=== PATIENT | male | born 1950 | race Caucasian/White ===

== ENCOUNTER → 2017-10-09 07:05 | Outpatient (CLI) | payer MEDICARE, OTHER, SELFPAY ==
[2017-10-09 08:45] LABS: AST(SGOT) 10 U/L (15-37); Alanine Aminotransfer ALT/SGPT 26 U/L (16-61); Albumin, Serum 3.8 g/dL (3.2-5.0); Alkaline Phosphatase 85 U/L (45-117); Bilirubin, Direct 0.32 mg/dL (0.00-0.30); Cholesterol 125 mg/dL (200); Globulin 3.3 g/dL (2.2-4.2); High Density Lipoprotein 48 mg/dL; Protein, Total 7.1 g/dL (6.4-8.2); Triglycerides 78 mg/dL; Very Low Density Lipoprotein 16 mg/dL (5-40)
== END ==
PROVIDERS: Family Provider Family Medicine; PCP Family Medicine; Visit Provider Internal Medicine Cardiovascular Disease
DX: I35.0 Nonrheumatic aortic (valve) stenosis (principal); I25.10 Atherosclerotic heart disease of native coronary artery without angina pectoris; I10 Essential (primary) hypertension; E78.5 Hyperlipidemia, unspecified; Z95.5 Presence of coronary angioplasty implant and graft
CPT/HCPCS: 36415; 80061; 80076

== ENCOUNTER → 2017-10-13 10:33 | Outpatient (CLI) | payer MEDICARE, OTHER, SELFPAY ==
--- NOTE | 2017-10-13 10:36 | STE_ITS ---
Reason For Study: Aortic Stenosis, HTN, CAD Stress Results Protocol: Markos Protocol Maximum Predicted HR: 155 bpm Target HR: 132 bpm% Max imum Predicted HR: 100 % DurationHeart Rate Stage (mm:ss) (bpm) BP Baseline 67 122/84 Markos Protocol Stage I 3:00 10 6 164/78 Markos Protocol Stage II 3:00 13 3 190/80 Markos Protocol Stage III 3:00 15 5 194/82 Recovery 90 132/76 Stress Duration: 9:00 mm:ss Maximum Stress HR: 155 bpmM ETS: 10 Baseline Echocardiogram Findings The estimated ejection fraction is 65 %. Stress Echo Wall motion Data Resting WMIntermediate WMStress WM Resting Wall Motion Wall Motion Stress No regional wall motion No regional wall motion abnormalities noted. abnormalities noted. Interpretation Summary Normal adequate treadmill echocardiogram. Negative for ischemia by echocardiographic anterior. Patient did develop [address] segment changes at peak exercise which quickly resolved by 50 seconds into recovery. No associated anginal symptoms or wall motion abnromalities noted. No arrhythmias noted. Hypertensive blood pressure response to exercise. Patient had a baseline peak aortic valvular gradient of 24 mmHg, which increased to 65 mmHg at peak exercise. Average exercise capacity for age. Final LVEF is 75%. Test terminated due to dsypnea. MMode/2D Measurements & Calculations LVOT diam: 2.1 cm LVOT area: 3.5 cm2 Doppler Measurements & Calculations Ao V2 max: 248.2 cm/sec LV V1 max P.1 mmHg SV(LVOT): 112.7 ml Ao max P.7 mmHg LV V1 mean P.6 mmHg Ao V2 mean: 176.6 cm/sec LV V1 max: 151.1 cm/sec Ao mean P.8 mmHg LV V1 mean: 101.2 cm/sec Ao V2 VTI: 51.3 cm LV V1 VTI: 31.9 cm JESUS(I,D): 2.2 cm2 JESUS(V,D): 2.1 cm2 Ordering Physician: Vaibhav Mead Referring Physician: Vaibhav Mead MD Performed By: Nichelle Moscoso, ANDREW, RVT
== END ==
PROVIDERS: Family Provider Family Medicine; PCP Family Medicine; Visit Provider Internal Medicine Cardiovascular Disease
DX: I25.10 Atherosclerotic heart disease of native coronary artery without angina pectoris (principal); I35.0 Nonrheumatic aortic (valve) stenosis; I10 Essential (primary) hypertension; E78.5 Hyperlipidemia, unspecified; Z95.5 Presence of coronary angioplasty implant and graft
CPT/HCPCS: 93017; 93350

== ENCOUNTER → 2018-04-15 07:44 | Outpatient (CLI) | payer MEDICARE, OTHER, SELFPAY ==
[2018-04-15 10:34] LABS: AST(SGOT) 17 U/L (15-37); Alanine Aminotransfer ALT/SGPT 34 U/L (16-61); Albumin, Serum 4.1 g/dL (3.2-5.0); Alkaline Phosphatase 91 U/L (45-117); Bilirubin, Direct 0.17 mg/dL (0.00-0.30); Cholesterol 159 mg/dL (200); Globulin 3.3 g/dL (2.2-4.2); High Density Lipoprotein 44 mg/dL; Protein, Total 7.4 g/dL (6.4-8.2); Triglycerides 195 mg/dL; Very Low Density Lipoprotein 39 mg/dL (5-40)
== END ==
PROVIDERS: Family Provider Family Medicine; PCP Family Medicine; Visit Provider Physician Assistant Medical
DX: E78.5 Hyperlipidemia, unspecified (principal); Z79.899 Other long term (current) drug therapy
CPT/HCPCS: 36415; 80061; 80076

== ENCOUNTER → 2018-10-28 07:11 | Outpatient (CLI) | payer MEDICARE, OTHER, SELFPAY ==
[2018-10-07 10:20] VITALS: BMI 27.9
--- NOTE | 2018-10-28 07:38 | ECHOD_ITS ---
Reason For Study: Valve replacement eval Procedure This was a 2D Doppler, Color Flow transthoracic echocardiogram. Exam performed in department. Left Ventricle Normal size and thickness. The estimated ejection fraction is 65 %. Stage 1 diastolic dysfunction. No regional wall motion abnormalities noted. Right Ventricle Normal size and thickness. Normal systolic function. Atria Normal left atrium. Normal right atrium. Prominent eustachian valve. Normal atrial septum. Mitral Valve Mild diffuse mitral valve thickening. Moderate mitral annular calcification extending into the posterior leaflet. Trivial mitral valve insufficiency. Tricuspid Valve Normal tricuspid valve. Trivial tricuspid valve insufficiency. Right ventricular systolic pressure estimated to be 29 mmHg. Aortic Valve Trisinus/trileaflet aortic valve. Moderate focal aortic valve thickening. Moderate focal aortic valve calcification. Moderate restriction of the aortic valve. Mild aortic stenosis. Peak aortic valve gradient 19 mmHg. Mean aortic valve gradient 8 mmHg. Pulmonic Valve The pulmonic valve is not well visualized. Great Vessels Normal aortic root. Normal arch. Normal inferior vena cava. Inferior vena cava collapse with respiration. Pericardium/Pleural No pericardial effusion. MMode/2D Measurements & Calculations LVIDd: 3.9 cm IVSd: 1.1 cm LVOT diam: 2.0 cm LVIDs: 2.2 cm LVPWd: 1.3 cm LVOT area: 3.1 cm2 FS: 43.4 % Ao root diam: 3.5 cm LAV(MOD-bp): 64.8 ml LA A4 area: 21.0 cm2 LA dimension: 3.7 cm LAV(MOD-bp) Indexed: 34.0 ml/m2 LAV(MOD-sp2): 66.4 ml LAV(MOD-sp4): 61.9 ml RA A4 area: 18.4 cm2 Time Measurements MV dec time: 0.21 sec Doppler Measurements & Calculations MV E max dani: 108.5 cm/sec Lat Peak E' Dani: 9.6 cm/sec Med Peak E' Dani: 7.8 cm/sec MV A max dani: 80.0 cm/sec E/E' lat: 11.4 E/E' med: 13.9 MV E/A: 1.4 MV V2 max: 118.5 cm/sec MV P1/2t max dani: 119.4 cm/sec Ao V2 max: 218.3 cm/sec MV max P.6 mmHg MV P1/2t: 74.0 msec Ao max P.1 mmHg MV V2 mean: 55.5 cm/sec MV dec slope: 472.8 cm/sec2 Ao V2 mean: 127.0 cm/sec MV mean P.5 mmHg Ao mean P.9 mmHg MV V2 VTI: 47.3 cm MVA(P1/2t): 3.0 cm2 Ao V2 VTI: 49.4 cm MVA(VTI): 1.9 cm2 JESUS(I,D): 1.8 cm2 JESUS(V,D): 1.6 cm2 LV V1 max: 112.9 cm/sec SV(LVOT): 88.6 ml PA V2 max: 67.4 cm/sec LV V1 max P.1 mmHg LV V1 mean P.2 mmHg LV V1 mean: 66.7 cm/sec LV V1 VTI: 28.7 cm TR max dani: 246.0 cm/sec TR max P.2 mmHg Interpretation Summary The estimated ejection fraction is 65 %. Stage 1 diastolic dysfunction. Trivial mitral valve insufficiency. Trivial tricuspid valve insufficiency. Right ventricular systolic pressure estimated to be 29 mmHg. Mild aortic stenosis; may be underestimated. Compared to echo reprort dated 10/25/2015, no appreciable changes noted. Ordering Physician: Vaibhav Mead Referring Physician: Vaibhav Mead Performed By: Juan Dunn RCS
[2018-10-28 08:53] LABS: AST(SGOT) 20 U/L (15-37); Alanine Aminotransfer ALT/SGPT 34 U/L (16-61); Albumin, Serum 4.1 g/dL (3.2-5.0); Alkaline Phosphatase 103 U/L (45-117); Bilirubin, Direct 0.36 mg/dL (0.00-0.30); Cholesterol 161 mg/dL (200); Globulin 3.2 g/dL (2.2-4.2); High Density Lipoprotein 45 mg/dL; Protein, Total 7.3 g/dL (6.4-8.2); Triglycerides 106 mg/dL; Very Low Density Lipoprotein 21 mg/dL (5-40)
== END ==
PROVIDERS: Family Provider Family Medicine; PCP Family Medicine; Referring Provider Internal Medicine Cardiovascular Disease; Visit Provider Internal Medicine Cardiovascular Disease
DX: E78.5 Hyperlipidemia, unspecified (principal); I25.10 Atherosclerotic heart disease of native coronary artery without angina pectoris
CPT/HCPCS: 36415; 80061; 80076; 93306

== ENCOUNTER → 2018-11-04 09:20 | Outpatient (CLI) | payer MEDICARE, OTHER, SELFPAY ==
[2018-10-07 10:20] VITALS: BMI 27.9
--- NOTE | 2018-11-04 09:23 | STEWCON_ITS ---
Reason For Study: CAD/ASHD Stress Results Protocol: Markos Protocol Maximum Predicted HR: 154 bpm Target HR: 131 bpm % Maximum Predicted HR: 97 % DurationHeart Rate Stage (mm:ss) (bpm) BP Comment BASELINE 68 128/803 CC DEFINITY STAGE 1 3:00 114 170/84 STAGE 2 3:00 127 196/80SLIGHT SOB STAGE 3 3:00 150 186/822 CC DEFINITY RECOVERY 90 130/70NO CHEST PAIN Stress Duration: 9:00 mm:ss Maximum Stress HR: 150 bpm Baseline Echocardiogram Findings The estimated ejection fraction is 65 %. Stress Echo Wall motion Data Resting WM Intermediate WM Stress WM Resting Wall Motion Wall Motion Stress No regional wall motion No regional wall motion abnormalities noted. abnormalities noted. EKG Data Normal intervals are noted. The patient exercised according to the regular Markos protocol for a total duration of 9:00. The maximum heart rate attained was 155 beats per minute. This was 100% of maximum predicted heart rate. The patient exercised into stage 4 of the Markos protocol. At peak exercise, upsloping ST changes only were noted, which did not meet the criteria for ischemia. No arrhythmias noted. No clinical angina was noted. Interpretation Summary The estimated ejection fraction is 65 %. Normal, adequate, treadmill echocardiogram. Get it for ischemia by EKG and echocardiographic criteria. No anginal symptoms noted. No arrhythmias noted. Hypertensive blood pressure response to exercise. Average exercise capacity for age. Decreased sensitivity due to poor echo windows requiring Definity enhancing. Test terminated due to attainment of target heart rate and dyspnea. No peak and mean gradient obtained of his aortic valve. Final LVEF is 75%. The study was technically difficult. Contrast injection was performed. Ordering Physician: Vaibhav Mead MD Referring Physician: Vaibhav Mead Performed By: Juan Dunn RCS
== END ==
PROVIDERS: Family Provider Family Medicine; PCP Family Medicine; Referring Provider Internal Medicine Cardiovascular Disease; Visit Provider Internal Medicine Cardiovascular Disease
DX: I25.10 Atherosclerotic heart disease of native coronary artery without angina pectoris (principal); I35.0 Nonrheumatic aortic (valve) stenosis; I10 Essential (primary) hypertension; E78.5 Hyperlipidemia, unspecified; Z95.5 Presence of coronary angioplasty implant and graft
CPT/HCPCS: 93017; 93350; Q9957; A4216; C8928

== ENCOUNTER → 2019-11-13 | Outpatient (CLI) | payer MEDICARE, OTHER, SELFPAY ==
[2019-05-04 13:27] VITALS: BMI 29.2
[2019-11-13 08:11] LABS: AST(SGOT) 20 U/L (15-37); Alanine Aminotransfer ALT/SGPT 37 U/L (16-61); Albumin, Serum 3.9 g/dL (3.2-5.0); Alkaline Phosphatase 98 U/L (45-117); Bilirubin, Direct 0.33 mg/dL (0.00-0.30); Cholesterol 176 mg/dL (200); Globulin 3.4 g/dL (2.2-4.2); High Density Lipoprotein 43 mg/dL; Protein, Total 7.3 g/dL (6.4-8.2); Triglycerides 152 mg/dL; Very Low Density Lipoprotein 30 mg/dL (5-40)
== END | disposition home or self-care (01) ==
LOC: LAB 06:27
PROVIDERS: PCP Family Medicine; Referring Provider Internal Medicine Cardiovascular Disease; Visit Provider Internal Medicine Cardiovascular Disease
DX: E78.00 Pure hypercholesterolemia, unspecified (principal)
CPT/HCPCS: 36415; 80061; 80076

== ENCOUNTER → 2020-06-18 | Outpatient (CLI) | payer MEDICARE, OTHER, SELFPAY ==
[2019-11-16 08:56] VITALS: BMI 28.7
[2020-06-18 10:12] LABS: AST(SGOT) 23 U/L (15-37); Alanine Aminotransfer ALT/SGPT 35 U/L (16-61); Albumin, Serum 4.1 g/dL (3.2-5.0); Alkaline Phosphatase 91 U/L (45-117); Cholesterol 171 mg/dL (200); Globulin 3.5 g/dL (2.2-4.2); High Density Lipoprotein 47 mg/dL; Protein, Total 7.6 g/dL (6.4-8.2); Triglycerides 154 mg/dL; Very Low Density Lipoprotein 31 mg/dL (5-40)
== END | disposition home or self-care (01) ==
PROVIDERS: PCP Family Medicine; Referring Provider Internal Medicine Cardiovascular Disease; Visit Provider Internal Medicine Cardiovascular Disease
DX: E78.5 Hyperlipidemia, unspecified (principal); E78.00 Pure hypercholesterolemia, unspecified
CPT/HCPCS: 36415; 80061; 80076

== ENCOUNTER 2020-11-07 15:47 | Outpatient (RCR) | payer MEDICARE, OTHER, SELFPAY ==
[2020-06-20 08:29] VITALS: BMI 27.5
[2020-11-07] MEDS: COVID-19 VACC, MRNA(PFIZER)/PF 30 MCG/0.3 ML SYRINGE IM (07:07)
[2020-11-28] MEDS: COVID-19 VACC, MRNA(PFIZER)/PF 30 MCG/0.3 ML SYRINGE IM (07:04)
== END 2020-11-07 23:59 ==
LOC: IMMUN 15:47
PROVIDERS: PCP Family Medicine; Visit Provider Family Medicine
DX: Z23 Encounter for immunization (principal)
CPT/HCPCS: 0001A; 0002A

== ENCOUNTER → 2020-12-13 06:56 | Outpatient (CLI) | payer MEDICARE, OTHER, SELFPAY ==
[2020-06-20 08:29] VITALS: BMI 27.5
[2020-12-13 07:40] LABS: AST(SGOT) 17 U/L (15-37); Alanine Aminotransfer ALT/SGPT 36 U/L (16-61); Albumin, Serum 3.9 g/dL (3.2-5.0); Alkaline Phosphatase 94 U/L (45-117); Bilirubin, Direct 0.26 mg/dL (0.00-0.30); Cholesterol 199 mg/dL (200); Globulin 3.4 g/dL (2.2-4.2); High Density Lipoprotein 44 mg/dL; Protein, Total 7.3 g/dL (6.4-8.2); Triglycerides 164 mg/dL; Very Low Density Lipoprotein 33 mg/dL (5-40)
== END ==
PROVIDERS: PCP Family Medicine; Referring Provider Nurse Practitioner Family; Visit Provider Nurse Practitioner Family
DX: E78.5 Hyperlipidemia, unspecified (principal); E78.00 Pure hypercholesterolemia, unspecified
CPT/HCPCS: 36415; 80061; 80076

== ENCOUNTER → 2021-01-08 05:56 | Outpatient (CLI) | payer MEDICARE, OTHER, SELFPAY ==
[2020-12-19 09:09] VITALS: BMI 29.2
--- NOTE | 2021-01-08 06:00 | ECHOD_ITS ---
Reason For Study: AV DISEASE Procedure This was a 2D Doppler, Color Flow transthoracic echocardiogram. The study was technically difficult. Due to body habitus. Contrast injection was performed. Exam performed in department. Left Ventricle Normal LV size. Left ventricular systolic function is normal. The estimated ejection fraction is 75 %. No regional wall motion abnormalities noted. Right Ventricle Normal RV size. Normal systolic function. Atria Normal left atrium. Normal right atrium. Mitral Valve There is mild to moderate mitral annular calcification. Tricuspid Valve Normal tricuspid valve. Aortic Valve Trisinus/trileaflet aortic valve. Mild focal aortic valve calcification. Peak aortic valve gradient 34 mmHg. Mean aortic valve gradient 19 mmHg. Mild aortic stenosis. Pulmonic Valve The pulmonic valve is not well visualized. Great Vessels Normal aortic root. The pulmonary artery is normal size. Normal inferior vena cava. Pericardium/Pleural No pericardial effusion. Medication Diluted definity 3.0ml given slow IV push to enhance endocardial definition. MMode/2D Measurements & Calculations LVIDd: 3.6 cm IVSd: 1.1 cm LVOT diam: 2.0 cm LVIDs: 2.5 cm LVPWd: 1.1 cm RVDd: 4.0 cm FS: 32.0 % LVOT area: 3.0 cm2 Ao root diam: 3.3 cm LAV(MOD-bp): 68.8 ml LVAd ap4: 36.0 cm2 LAV(MOD-bp) Indexed: 34.2 ml/m2 LVLd ap4: 9.1 cm LAV(MOD-sp2): 68.4 ml EDV(MOD-sp4): 112.6 ml LAV(MOD-sp4): 64.4 ml EDV(sp4-el): 120.8 ml LVAs ap4: 17.3 cm2 LVLs ap4: 7.4 cm ESV(MOD-sp4): 31.8 ml ESV(sp4-el): 34.0 ml EF(MOD-sp4): 71.7 % EF(sp4-el): 71.8 % SV(MOD-sp4): 80.7 ml SV(sp4-el): 86.8 ml LA A4 area: 20.3 cm2 LA dimension(2D): 3.8 cm RA A4 area: 14.3 cm2 Time Measurements MV dec time: 0.38 sec Doppler Measurements & Calculations MV E max dani: 99.5 cm/sec Lat Peak E' Dani: 8.0 cm/sec Med Peak E' Dani: 6.0 cm/sec MV A max dani: 135.1 cm/sec E/E' lat: 12.5 E/E' med: 16.5 MV E/A: 0.74 Ao V2 max: 292.3 cm/sec LV V1 max: 162.2 cm/sec SV(LVOT): 101.6 ml Ao max P.2 mmHg LV V1 max P.5 mmHg Ao V2 mean: 208.3 cm/sec LV V1 mean P.2 mmHg Ao mean P.0 mmHg LV V1 mean: 118.8 cm/sec Ao V2 VTI: 53.4 cm LV V1 VTI: 33.8 cm JESUS(I,D): 1.9 cm2 JESUS(V,D): 1.7 cm2 PA V2 max: 132.5 cm/sec ECHO/Echo Complete W/ Contrast Interpretation Summary Normal LV size. Left ventricular systolic function is normal. The estimated ejection fraction is 75 %. Mean aortic valve gradient 19 mmHg. Mild focal aortic valve calcification. Mild aortic stenosis. Contrast injection was performed. Ordering Physician: Eduardo Link Referring Physician: NO PCP Performed By: Melinda Matthews, ANDREW, RVT
--- NOTE | 2021-01-08 17:47 | STRESSREP ---
Stress Test Report Exercise myocardial perfusion stress test. 70-year-old man with a history of coronary artery disease status post angioplasty and stenting of the proximal LAD, distal right coronary artery, and circumflex artery. Stress protocol: Resting EKG demonstrates normal sinus rhythm with a rate of 73 bpm normal intervals are noted resting blood pressure is 128/74 mmHg. The patient exercised according to the regular Markos protocol for total duration of 7 minutes. Patient completed 1 minute into stage III of the Markos protocol. The maximum heart rate attained was 146 bpm which was 96% of maximum predicted heart rate the maximum workload was 8.5 metabolic equivalents. At rest there were no ST or T wave changes noted to suggest ischemia and at peak exercise there was approximately [address] depression noted in lead V4 and [address] depression noted in V5 and V6. There was also a [address] depression noted in leads II, III and aVF suggestive of ischemia. The patient had slight chest discomfort noted. The peak blood pressure was 172/68 mmHg. Myocardial perfusion protocol. 11.4 mCi of technetium 99m sestamibi was injected at rest. The patient exercised according to the regular Markos protocol for 7 minutes and at peak exercise 36.0 mCi of technetium 99m sestamibi was injected stress images were obtained stress and rest images were reconstructed and compared in the short axis vertical long and horizontal long axis. Gated images were also obtained. Perfusion SPECT analysis: Review of the stress images demonstrate normal uptake of tracer noted in all areas of the myocardium. The resting images similarly demonstrated normal uptake of tracer noted in all areas of the myocardium. No obvious reversibility is noted to suggest ischemia. Balanced ischemia cannot be completely excluded. Gated SPECT analysis: The gated ejection fraction is noted to be 79%. Conclusion: Exercise myocardial perfusion stress test with no nuclear images suggestive of ischemia. EKG changes suggestive of ischemia present. Mild chest discomfort noted
== END ==
PROVIDERS: Referring Provider Internal Medicine Cardiovascular Disease; Visit Provider Internal Medicine Cardiovascular Disease
DX: I25.10 Atherosclerotic heart disease of native coronary artery without angina pectoris (principal); I35.8 Other nonrheumatic aortic valve disorders; Z95.5 Presence of coronary angioplasty implant and graft
CPT/HCPCS: 78452; 93017; 93306; A9500; Q9957; A4216; C8929

== ENCOUNTER 2021-02-14 06:45 | Day surgery (SDC) | payer MEDICARE, OTHER, SELFPAY ==
[2020-12-19 09:09] VITALS: BMI 29.2
--- NOTE | 2021-02-06 10:01 | RAD_ITS ---
INDICATION: chest pain EXAMINATION/TECHNIQUE: X-RAY - XR Chest 2 Views COMPARISON: 09/28/2012. FINDINGS: The lungs are clear. Tortuous and calcified thoracic aorta. The heart is not enlarged. No pleural effusion or pneumothorax. Degenerative changes of the thoracic spine. RAD/Chest PA and Lateral IMPRESSION: No acute radiographic abnormalities. Electronically Signed: Deven Werner MD at 21:10 EDT Tel , Service support ,
[2021-02-06 11:56] LABS: Absolute Lymphocyte Count 2.15 X10^3/uL (0.83-4.51); Absolute Neutrophil Count 4.3 X10^3/uL (2.0-7.7); Basophil# 0.02 X10^3/uL; Basophil% 0.3 % (0-1); Eosinophil# 0.06 X10^3/uL; Eosinophils% 0.9 % (0-5); Hematocrit 42.6 % (40-54); Hemoglobin 13.7 g/dL (13.0-16.5); Lymphocyte # 2.15 X10^3/ul (0.83-4.51); Lymphocyte % 30.6 % (19-41); Mean Corp Hgb Conc 32.2 g/dL (32-36); Mean Corpuscular Hgb 31.6 pg (27.0-32.0); Mean Corpuscular Volume 98.2 fL (80-94); Mean Platelet Vol. 12.1 fl (6.2-12.0); Monocyte# 0.44 X10^3/uL; Monocyte% 6.3 % (0-10); NRBC Flagged by Analyzer 0 % (0-5); Neutrophil # 4.33 X10^3/uL (2.7-7.7); Neutrophil % 61.5 % (47-70); Platelet Count 218 K/mm3 (150-450); RBC Distribution Width SD 43.8 fl (35.1-43.9); Red Blood Count 4.34 M/mm3 (4.6-6.2)
[2021-02-06 12:56] LABS: Anion Gap 8 (5-15); BUN 20 mg/dL (7-18); BUN/Creat Ratio 18.7 RATIO (10-20); Chloride 103 mmol/L (98-107); Creatinine, Serum 1.07 mg/dL (0.70-1.30); EST Glomerular Filtration Rate 73 mL/min (>60); Est Glom Filt Rate - Afr Amer 88 mL/min (>60); Glucose 113 mg/dL (74-106); Potassium 3.7 mmol/L (3.5-5.1); Sodium Level 139 mmol/L (136-145)
[2021-02-12 09:47] VITALS: BMI 29.2
--- NOTE | 2021-02-14 08:09 | HP.PCM_ITS ---
History and Physical This is a 70-year-old white male who presents to the [facility] today for a heart catheterization. He has a history of coronary artery disease status post angioplasty and stenting of his proximal LAD with a bare metal stent in the as well as a drug-eluting stent placed in the distal RCA and his most recent angioplasty in the circumflex and ramus intermedius on 01/02/2011. He also has a history of hypertension and hyperlipidemia as well. Patient was seen in office on 12/19/2020 and noted chest tightness. He underwent an echocardiogram on 01/08/2021 that showed ejection fraction of 75% and no regional wall motion abnormalities. He is noted to have mild aortic valve stenosis. He underwent a stress test on 01/08/2021 that showed EKG changes suggestive of ischemia and mild chest discomfort. Thus, he presents today for heart catheterization to evaluate further on account of abnormal stress test. He did receive the Covid shot and he thinks that he developed some chest tightness after that it is not clear whether this is related to the Covid vaccine or not. It took him approximately 3 weeks to get over that. He says that he otherwise has been doing well. He has been tested for Covid after that and has been normal. His blood pressure has been mildly elevated. He has gone up on the walks after that and no significant abnormalities have been noted. He has had no dizziness or diaphoresis no near syncope or syncope. His physical exam demonstrates clear lung german regular rate and rhythm soft 1/6 systolic murmur noted no pedal edema. Intake Vital Signs: See EMR Intake Visit Reasons: 6 M FU (DJN transfer) Allergies No Known Allergies Allergy (Verified 12/19/20 09:09) Medications See EMR Ejection fraction %: 75% [facility] Medical History Atherosclerosis of coronary artery of [place] heart without angina pectoris (Chronic) Non-rheumatic aortic stenosis (Chronic) Essential hypertension (Chronic) Hyperlipidemia (Chronic) GERD (gastroesophageal reflux disease) (Chronic) Surgical History History of coronary artery stent placement (Chronic) Family History Father CAD (coronary artery disease) Social History (Updated 12/19/20 @ 11:[address] Eduardo Link MD) Smoking Status: Never smoker ROS Const Const: Negative for fatigue, weakness, headache(s), frequent falls, difficulty sleeping or excessive sweating Eyes Eyes: Negative for loss of peripheral vision, transient loss of vision, blurry vision, double vision or tunnel vision ENT ENT: Negative for headache(s), dizziness, Nosebleed/epistaxis or balance problems Cardio Chest Pain: Yes (C.P SOB 4 weeks ago after COVID vaccine, went to urgent clinic COVID -) Palpitations: No Edema: None Muscle aches with walking: None Resp Respiratory: Negative for SOB with activity, SOB at rest, SOB orthopnea\SOB lying down, Cough or paroxysmal nocturnal dyspnea GI GI: Negative nausea, vomiting, heartburn or black,tarry stools : Negative for hematuria Musc Musc: Negative for muscle aches/ myalgia, muscle weakness, joint pain or balance problems Skin Skin: Negative non-healing lesions, rash or unusual bruising Neuro Neuro: Negative for dizziness, lightheadedness, near syncope, syncope, o rthostatic symptoms, frequent falls, headache(s), weakness, blurry vision, double vision or lack of coordination Carloz Hematologic/Lymphatic: Negative for easy bleeding or easy bruising Endo Endo: Negative for fatigue, excessive sweating or increased thirst/drinking Psych Psych: Negative for anxiety or depression Allergy Allergy/Immunology: Negative for hives, Negative for rash Cardiology Exam Const Appearance: cooperative, healthy appearing, no acute distress, well developed and well groomed Nutritional Appearance: average body habitus and well nourished Orientation: alert, awake and oriented x3 Head Head: normal to inspection, normocephalic and atraumatic Ears: hearing grossly normal bilaterally and external ears normal Nose: external nose normal, nares normal, nasal mucous membranes and turbinates normal, septum normal, no nasal discharge Face and Sinus: face symmetric Mouth: oral mucosae normal, tongue normal, oropharynx normal and moist mucous membranes Teeth and gingiva: dentition normal Throat: posterior oropharynx normal, tonsils normal and uvula midline Eyes General: appearance normal, both eyes and all related structures Eyelids: eyelids normal Conjunctivae: conjunctivae normal Pupils: PERRL, normal by confrontation and accommodation normal EOM: EOM intact bilaterally Neck Neck: normal visual inspection, trachea midline and no JVD JVD: +5 Carotids: normal carotid upstroke and bounding pulses Chest Chest inspection: normal inspection of the chest, symmetric chest movement and normal respiratory effort Auscultation: Bilateral: Clear to Auscultation Cardio Palpation: normal PMI Rate: regular rate Rhythm: regular rhythm Heart sounds: S1 normal, S2 normal and normal, physiologic split S2; negative rub, gallop or murmur Murmur: Grade 1/6, soft and early systolic GI GI: normal to inspection, soft, no hepatosplenomegaly and bowel sounds present Neuro General: alert, awake, oriented x3, gait normal, moves all extremities and no focal sensory deficit Skin Skin: no rashes or lesions noted Extremities Pulses: Normal: Right Femoral Pulse, Left Femoral Pulse, Right Dorsalis Pedis Pulse, Left Dorsalis Pedis Pulse, Right Posterior Tibial Pulse, Left Posterior Tibial Pulse, Right Radial Pulse, Left Radial Pulse Lower Extremity Edema: None: Bilateral Musculoskel Musculoskeletal: No joint tenderness Psych Psychological: normal affect Assessment & Plan 1. History of coronary artery stent placement Z95.5 OXI-[id number]-Odf-Distal RPDA,BMS-High Lateral Cx 05/23/1990; POBA-LAD 05/11/1991; Directional atherectomy Prox LAD w/ angioplasty 12/14/1990; BZB-ZFO-Ckin-Mid LAD 09/2004; NZG-PBP-Zeqs-Ramus w/ 2.75 x 28 mm Promus and Mid Ramus w/ 2.75 x 8 mm Promus 01/02/2011 Plan He does have a history of coronary artery disease status post previous angioplasty and stenting. Given his symptoms and abnormal stress test, he will proceed with heart catheterization. Based on results, further recommendation be made. 2. Non-rheumatic aortic stenosis I35.0 Plan He does have mild aortic stenosis. His most recent echocardiogram continues to show mild aortic valve stenosis. We will continue to monitor this over time through history, exam, and repeat echocardiogram as needed. 3. Essential hypertension I10 Plan He does have a history of hypertension. He is on a beta-richard, amlodipine, and RICHARD inhibitor. After last office visit he was started on doxazosin 2 mg a day and he was asked to continue to monitor his blood pressures. 4. Hyperlipidemia, unspecified hyperlipidemia type E78.5 Plan He does have a history of hyperlipidemia on a high intensity statin. I would like us to continue him on the same. He had been on 80 mg of atorvastatin but he had had significant muscle weakness. His most recent lipid profile demonstrates a total cholesterol 199, LDL 122 HDL of 44. No other changes will be made. The surgeon/proceduralist and patient have discussed in detail the risk of exposure to and/or potential harm posed by the COVID-19 virus with having a surgery/procedure at this time versus the risk of? delaying the surgery/procedure. It is not possible to know either the risk of delaying the surgery or procedure or chance of getting an infection with perfect accuracy, but a joint decision was made between the patient and the surgeon/proceduralist ?to proceed at this time with the scheduled surgery/procedure as indicated on the consent form.
--- NOTE | 2021-02-14 08:29 | CL.D_ITS ---
Patient Name: YADIEL CHAVARRIA Study Date: 02/14/2021 Performing: Eduardo Link MD Ht: 68.11 inches 173 cm : 1950 Wt: 191.8 lbs 87 kg Age: 70 Gender: male BSA: 2.01 PROCEDURE(S) PERFORMED [id number]/COR/LV CLINICAL PROFILE AND INDICATIONS Indications: Suspected CAD Heart Failure: None Stress/Imaging Date: 01/15/21 CAD Presentations: Symptom unlikely to be ischemic. CONCLUSIONS Single vessel CAD with significant LCX disease with patent stents in the LAD,ramus and RCA. RECOMMENDATIONS Medical therapy DESCRIPTION OF PROCEDURE The patient arrived to the procedure lab. The risks and benefits of the procedure as well as a full d escription of our services here and current unavailability of surgical backup were fully explained to the patient and/or their significant other prior to the catheterization. The Timeout was completed, verifying the correct patient and procedure. The patient's procedural site was prepped and draped in the usual fashion. Local anesthetic was given subcutaneously to right radial region with Lidocaine 2% . Using a modified Seldinger technique, arterial access was obtained via the right radial artery, a 6 Fr sheath was inserted. Right Coronary Artery selective angiography was then performed in multiple v iews using a 5 Fr. 4.0 [place] catheter. Left Coronary Artery selective angiography was performed in mu ltiple views using a 5 Fr. 4.0 [place] catheter. Left Ventriculography was performed in [place] projection using a 5 Fr. Pigtail catheter. LV to AO pullback pressures were then recorded.The arterial sheath was pulled and a TR Band was applied for hemostasis CORONARY ANGIOGRAPHY DOMINANCE: Right Dominant LEFT HEART ASSESSMENT Left Ventricular Ejection Fraction: by LV Gram 70 % Normal LV wall motion Normal Left Ventricular systolic function LEFT MAIN: Non-obstructive LEFT ANTERIOR DESCENDING ARTERY: MID LAD: Instent restenosis 20 % CIRCUMFLEX ARTERY: PROX CIRC: Diffusely diseased up to 80 % RAMUS: Previously placed stent is patent RIGHT CORONARY ARTERY: Mild luminal irregularities less than 30% DISTAL RCA: Previously placed stent is patent VALVE FINDINGS: Aortic Valve Calcification - mild COMPLICATIONS No Complications PROCEDURE MEDICATIONS Fentanyl 50 mcg IV Versed 1 mg IV Oxygen: 2 L/min via nasal cannula Heparin 3000 unit(s) IV 02/14/2021 08:00:45 SUMMARY OF HEMODYNAMIC DATA Time AIR REST ECG 07:03:25 AO 109/60 (81) SA 08:01:50 LV 121/7, 17 08:08:11 LV 122/9, 17 08:08:17 LV 117/10, 19 08:08:53 LVp 118/10, 18 08:08:57 AOp 115/57 (81) 08:09:02 Signed By Eduardo Link MD On 02/14/2021 08:28:43 Eduardo Link MD
== END 2021-02-14 09:50 | disposition home or self-care (01) ==
LOC: CLSP 06:45
PROVIDERS: Referring Provider Internal Medicine Cardiovascular Disease; Visit Provider Internal Medicine Cardiovascular Disease
DX: I25.10 Atherosclerotic heart disease of native coronary artery without angina pectoris (principal); I35.0 Nonrheumatic aortic (valve) stenosis; E78.5 Hyperlipidemia, unspecified; I10 Essential (primary) hypertension; K21.9 Gastro-esophageal reflux disease without esophagitis; Z95.5 Presence of coronary angioplasty implant and graft
CPT/HCPCS: 36415; 71046; 80048; 85025; 93458; 99152; 99153; J7040; Q9967; C1769; C1894

== ENCOUNTER → 2021-08-23 08:01 | Outpatient (CLI) | payer MEDICARE, OTHER, SELFPAY ==
[2021-08-23 08:44] LABS: AST(SGOT) 17 U/L (15-37); Alanine Aminotransfer ALT/SGPT 33 U/L (16-61); Albumin, Serum 3.9 g/dL (3.2-5.0); Alkaline Phosphatase 90 U/L (45-117); Bilirubin, Direct 0.22 mg/dL (0.00-0.30); Cholesterol 146 mg/dL (200); Globulin 3.3 g/dL (2.2-4.2); High Density Lipoprotein 43 mg/dL; Protein, Total 7.2 g/dL (6.4-8.2); Triglycerides 171 mg/dL; Very Low Density Lipoprotein 34 mg/dL (5-40)
== END ==
PROVIDERS: Visit Provider Nurse Practitioner Family
DX: E78.5 Hyperlipidemia, unspecified (principal)
CPT/HCPCS: 36415; 80061; 80076

== ENCOUNTER 2021-09-10 07:58 | Outpatient (CLI) | payer MEDICARE, OTHER, SELFPAY ==
--- NOTE | 2021-09-10 08:30 | MRI_ITS ---
STUDY: MRI BRAIN WITH AND WITHOUT CONTRAST (ATTENTION INTERNAL AUDITORY CANALS - I.A.C.''s) REASON FOR EXAM: Male, 71 years old. RIGHT HEARING LOSS TECHNIQUE: Standardized multiplanar fat and water weighted pulse sequences were obtained. 18CC IV DOTAREM was administered for the contrast portion of the examination. COMPARISON: None. FINDINGS: Normal bilateral temporal bones. Normal bilateral internal auditory canals. There is no demonstrated intracanalicular or cisternal vestibular schwannoma (acoustic neuroma). There is no enhancement of the bilateral VIIth or VIIIth cranial nerves. Normal bilateral cochlea, vestibules and semicircular canals. Normal size of the ventricles and extra-axial spaces for the patient''s age. Normal white matter tracts of the supratentorial brain. Normal bilateral basal ganglia. Normal thalami. There is no enhancing intra-axial or extra-axial abnormality. There is no extra-axial fluid accumulation. Normal sella turcica, pituitary gland, infundibular stalk, optic chiasm and hypothalamus. Normal tectal plate and pineal gland. Normal midbrain, emile and medulla. Normal cerebellum. MRI/Brain W/WO Contrast IMPRESSION: There is no demonstrated vestibular schwannoma (acoustic neuroma). Electronically Signed: Bere Galicia MD at 16:00 EST Tel , Service support ,
[2021-09-10 08:41] LABS: EGFR FINGERSTICK > 60.0000 mL/min (>60)
== END 2021-09-10 23:59 | disposition short-term general hospital (02) ==
LOC: MRI 08:00
PROVIDERS: Referring Provider Otolaryngology; Visit Provider Otolaryngology
DX: H91.21 Sudden idiopathic hearing loss, right ear (principal); H93.11 Tinnitus, right ear
CPT/HCPCS: 70553; A9575

== ENCOUNTER → 2022-04-17 | Outpatient (CLI) | payer MEDICARE, OTHER, SELFPAY ==
[2022-04-17 07:29] LABS: AST(SGOT) 20 U/L (15-37); Alanine Aminotransfer ALT/SGPT 37 U/L (16-61); Albumin, Serum 3.9 g/dL (3.2-5.0); Alkaline Phosphatase 93 U/L (45-117); Cholesterol 156 mg/dL (200); Globulin 3.4 g/dL (2.2-4.2); High Density Lipoprotein 40 mg/dL; Protein, Total 7.3 g/dL (6.4-8.2); Triglycerides 172 mg/dL; Very Low Density Lipoprotein 34 mg/dL (5-40)
== END | disposition home or self-care (01) ==
LOC: LAB 06:38
PROVIDERS: Referring Provider Nurse Practitioner Family; Visit Provider Nurse Practitioner Family
DX: E78.5 Hyperlipidemia, unspecified (principal)
CPT/HCPCS: 36415; 80061; 80076

== ENCOUNTER → 2022-04-22 | Outpatient (CLI) | payer MEDICARE, OTHER, SELFPAY ==
[2022-04-22 12:46] LABS: AST(SGOT) 16 U/L (15-37); Alanine Aminotransfer ALT/SGPT 33 U/L (16-61); Albumin, Serum 3.7 g/dL (3.2-5.0); Alkaline Phosphatase 85 U/L (45-117); Cholesterol 146 mg/dL (200); Globulin 3.3 g/dL (2.2-4.2); High Density Lipoprotein 40 mg/dL; Triglycerides 214 mg/dL; Very Low Density Lipoprotein 43 mg/dL (5-40)
== END | disposition home or self-care (01) ==
LOC: LAB 11:48
PROVIDERS: Referring Provider Nurse Practitioner Family; Visit Provider Nurse Practitioner Family
DX: E78.5 Hyperlipidemia, unspecified (principal)
CPT/HCPCS: 36415; 80061; 80076

== ENCOUNTER → 2022-10-13 | Outpatient (CLI) | payer MEDICARE, OTHER, SELFPAY ==
[2022-10-13 09:04] LABS: Anion Gap 6 (5-15); BUN 20 mg/dL (7-18); BUN/Creat Ratio 32.3 RATIO (10-20); Calcium,Total 9.3 mg/dL (8.5-10.1); Chloride 106 mmol/L (98-107); Creatinine, Serum 0.62 mg/dL (0.70-1.30); EST Glomerular Filtration Rate 137 mL/min (>60); Est Glom Filt Rate - Afr Amer 165 mL/min (>60); Glucose 114 mg/dL (74-106); Potassium 3.9 mmol/L (3.5-5.1); Sodium Level 142 mmol/L (136-145)
[2022-10-13 09:39] LABS: AST(SGOT) 17 U/L (15-37); Alanine Aminotransfer ALT/SGPT 33 U/L (16-61); Alkaline Phosphatase 88 U/L (45-117); Bilirubin, Direct 0.21 mg/dL (0.00-0.30); Cholesterol 147 mg/dL (200); Globulin 3.1 g/dL (2.2-4.2); High Density Lipoprotein 45 mg/dL; Protein, Total 7.1 g/dL (6.4-8.2); Triglycerides 145 mg/dL; Very Low Density Lipoprotein 29 mg/dL (5-40)
== END | disposition home or self-care (01) ==
LOC: LAB 07:59
PROVIDERS: Internal Medicine Cardiovascular Disease; Referring Provider Nurse Practitioner Family; Visit Provider Nurse Practitioner Family
DX: Z95.5 Presence of coronary angioplasty implant and graft (principal); E78.5 Hyperlipidemia, unspecified
CPT/HCPCS: 36415; 80048; 80061; 80076

== ENCOUNTER → 2022-10-26 | Outpatient (CLI) | payer MEDICARE, OTHER, SELFPAY ==
--- NOTE | 2022-10-26 17:26 | STRESSREP_ITS ---
Stress Test Report Exercise myocardial perfusion stress test. 72-year-old man with a history of coronary artery disease Stress protocol: Resting EKG demonstrates normal sinus rhythm with a rate of 73 bpm resting blood pressure is 126/80 mmHg. The patient exercised according to the regular Markos protocol for a total duration of 4 minutes and 45 seconds attaining a maximum heart rate of 134 bpm which was 89% of maximum predicted heart rate; the maximum workload was 7 metabolic equivalents. At rest there were no ST or T wave changes noted to suggest ischemia and at peak exercise upsloping ST changes only were noted which did not meet the criteria for ischemia. No clinical angina was noted the test was terminated due to the target heart rate being achi eved/fatigue. The peak blood pressure was 162/80 mmHg. Rate-pressure product was 21,700. Myocardial perfusion protocol. 15.8 mCi of technetium 99m sestamibi was injected at rest. The patient exerc ised according to regular Markos protocol for total duration of 4 minutes and 45 seconds and at peak exercise 40.4 mCi of technetium 99m sestamibi was injected stress images were obtained stress and rest images were reconstructed in comparing the short axis vertical long and horizontal long axis. Gated images were also obtained. Perfusion SPECT analysis: Review of the stress images demonstrate normal uptake of tracer noted in all areas of the myocardium. The resting images similarly demonstrate normal uptake of tracer noted in all areas of the myocardium. No areas of reversibility are noted to suggest ischemia no previous infarct was noted. Gated SPECT analysis: The gated ejection fraction is 69%. Conclusion: Normal exercise myocardial perfusion stress test at a moderate workload Preserved ejection fraction.
== END | disposition home or self-care (01) ==
LOC: CVS 06:15
PROVIDERS: Referring Provider Nurse Practitioner Family; Visit Provider Nurse Practitioner Family
DX: R07.9 Chest pain, unspecified (principal); Z95.5 Presence of coronary angioplasty implant and graft; I10 Essential (primary) hypertension; E78.5 Hyperlipidemia, unspecified
CPT/HCPCS: 78452; 93017; A9500; A4216

== ENCOUNTER → 2023-03-18 | Outpatient (CLI) | payer MEDICARE, OTHER, SELFPAY ==
[2023-03-18 08:35] LABS: AST(SGOT) 21 U/L (15-37); Alanine Aminotransfer ALT/SGPT 32 U/L (16-61); Albumin, Serum 3.7 g/dL (3.2-5.0); Alkaline Phosphatase 106 U/L (45-117); Bilirubin, Direct 0.29 mg/dL (0.00-0.30); Cholesterol 151 mg/dL (200); Globulin 3.5 g/dL (2.2-4.2); High Density Lipoprotein 44 mg/dL; Protein, Total 7.2 g/dL (6.4-8.2); Triglycerides 176 mg/dL; Very Low Density Lipoprotein 35 mg/dL (5-40)
== END | disposition home or self-care (01) ==
LOC: LAB 07:34
PROVIDERS: Referring Provider Nurse Practitioner Family; Visit Provider Nurse Practitioner Family
DX: E78.00 Pure hypercholesterolemia, unspecified (principal)
CPT/HCPCS: 36415; 80061; 80076

== ENCOUNTER → 2023-04-05 | Outpatient (CLI) | payer MEDICARE, OTHER, SELFPAY ==
[2023-04-05 13:37] LABS: Absolute Lymphocyte Count 2.15 X10^3/uL (0.83-4.51); Absolute Neutrophil Count 4.5 X10^3/uL (2.0-7.7); Basophil# 0.03 X10^3/uL; Basophil% 0.4 % (0-1); Eosinophil# 0.09 X10^3/uL; Eosinophils% 1.2 % (0-5); Hemoglobin 13.9 g/dL (13.0-16.5); Lymphocyte # 2.15 X10^3/ul (0.83-4.51); Lymphocyte % 28.9 % (19-41); Mean Corp Hgb Conc 33.9 g/dL (32-36); Mean Corpuscular Volume 100.2 fL (80-94); Mean Platelet Vol. 12.3 fl (6.2-12.0); Monocyte# 0.66 X10^3/uL; Monocyte% 8.9 % (0-10); NRBC Flagged by Analyzer 0 % (0-5); Neutrophil # 4.48 X10^3/uL (2.7-7.7); Neutrophil % 60.2 % (47-70); Platelet Count 195 K/mm3 (150-450); RBC Distribution Width CV 11.8 % (11.6-14.6); Red Blood Count 4.09 M/mm3 (4.6-6.2); White Blood Count 7.4 K/mm3 (4.4-11.0)
[2023-04-05 14:11] LABS: Insulin 15.8 mU/L (2.6-37.6)
[2023-04-05 14:19] LABS: ALB/GLOB Ratio 1.1 RATIO (0.9-2.4); AST(SGOT) 15 U/L (15-37); Alanine Aminotransfer ALT/SGPT 30 U/L (16-61); Albumin, Serum 3.9 g/dL (3.2-5.0); Alkaline Phosphatase 96 U/L (45-117); Anion Gap 5 (5-15); BUN 22 mg/dL (7-18); BUN/Creat Ratio 17.2 RATIO (10-20); Chloride 107 mmol/L (98-107); Creatinine, Serum 1.28 mg/dL (0.70-1.30); EST Glomerular Filtration Rate 59 mL/min (>60); Est Glom Filt Rate - Afr Amer 71 mL/min (>60); Globulin 3.4 g/dL (2.2-4.2); Glucose 98 mg/dL (74-106); PSA,Total - Annual Screen 0.63 ng/mL (0.00-4.00); Potassium 3.9 mmol/L (3.5-5.1); Protein, Total 7.3 g/dL (6.4-8.2); Sodium Level 139 mmol/L (136-145); Thyroid Stim Hormone (TSH) 0.66 uIU/mL (0.358-3.74)
[2023-04-05 14:25] LABS: Hemoglobin A1c 5.6 % (3.8-5.6)
== END | disposition home or self-care (01) ==
LOC: LAB 12:43
PROVIDERS: Referring Provider Internal Medicine; Visit Provider Internal Medicine
DX: I10 Essential (primary) hypertension (principal); E78.5 Hyperlipidemia, unspecified; E88.81 Metabolic syndrome and other insulin resistance; R07.9 Chest pain, unspecified; E55.9 Vitamin D deficiency, unspecified; R73.9 Hyperglycemia, unspecified; Z12.5 Encounter for screening for malignant neoplasm of prostate
CPT/HCPCS: 36415; 80053; 82306; 83036; 83525; 84153; 84443; 85025; G0103

== ENCOUNTER → 2023-04-09 | Outpatient (CLI) | payer MEDICARE, OTHER, SELFPAY | END | disposition home or self-care (01) | LOC: SL 09:03 | PROVIDERS: PCP Internal Medicine; Referring Provider Internal Medicine; Visit Provider Internal Medicine | DX: G47.30 Sleep apnea, unspecified (principal) | CPT/HCPCS: 95806 ==

== ENCOUNTER 2023-04-17 16:50 | Emergency (ER) | payer MEDICARE, OTHER, SELFPAY ==
[2023-04-17 16:51] VITALS: BP 141/76; PULSE 68; RESP 16; TEMP 36.4; O2SAT 96
--- NOTE | 2023-04-17 17:04 | CT_ITS ---
STUDY: CT BRAIN WITHOUT CONTRAST REASON FOR EXAM: Male, 72 years old. fall, head injury RADIATION DOSAGE (If Supplied By Facility): CTDIvol = ( 44.99 ) mGy, DLP = ( 846.73 ) mGycm TECHNIQUE: Transaxial CT imaging of the brain was performed without administration of intravenous contrast material. Individualized dose optimization techniques were used for this CT. COMPARISON: No relevant priors. FINDINGS: Normal soft tissue structures. Normal calvarium. Normal size ventricles and extra-axial spaces for the patient''s age. Normal white matter tracts of the cerebral hemispheres. Normal basal ganglia and thalami. Normal brainstem. Normal cerebellum. There is no intracranial hemorrhage. There are no findings of an acute ischemic infarction. Normal visualized paranasal sinuses. CT/Brain/Head without Contrast IMPRESSION: No acute intracranial hemorrhage or mass effect. Electronically Signed: Mau Kuo (Brooks), at 18:15 EDT ,
--- NOTE | 2023-04-17 17:04 | CT_ITS ---
EXAM: CT CERVICAL SPINE WITHOUT INTRAVENOUS CONTRAST CLINICAL INDICATION: head injury, neck pain TECHNIQUE: Helically acquired images were obtained of the cervical spine without intravenous contrast. 2D reformatted images were reviewed. This CT exam was performed using one or more of the following dose reduction techniques: automated exposure control, adjustment of the mA and/or kV according to patient size, and/or use of iterative reconstruction technique. RADIATION DOSE: CTDIvol = 25.67 mGy, DLP = 517.63 mGy-cm COMPARISON: No relevant prior studies available. FINDINGS: VERTEBRAE: Facet arthropathy involving multiple right more than left levels. Foraminal narrowing of bilateral C3-C4 and right C4-C5. No fracture. No traumatic subluxation. No discrete lytic or blastic abnormality. Normal alignment. Normal craniocervical junction and cervicothoracic junction. DISCS/SPINAL CANAL/NEURAL FORAMINA: Unremarkable. Disc heights are preserved. No critical stenosis. SOFT TISSUES: Unremarkable. No prevertebral soft tissue swelling. LYMPH NODES: Unremarkable. No cervical adenopathy. LUNG APICES: Unremarkable as visualized. Clear. CT/Spine Cervical without Contras IMPRESSION: No acute findings in the cervical spine. Pending Final Proof Editing
--- NOTE | 2023-04-17 17:04 | RAD_ITS ---
STUDY: X-RAY - THORACIC SPINE REASON FOR EXAM: Male, 72 years old. pain, injury TECHNIQUE: 3 view(s) of the thoracic spine were obtained. COMPARISON: None. FINDINGS: Normal kyphosis of the thoracic spine. There is no substantial scoliosis. There is multilevel endplate spondylosis of the thoracic vertebrae. There is multilevel disc space narrowing of the thoracic spine. The soft tissue structures are unremarkable. RAD/Thoracic Spine 3 Views IMPRESSION: No compression fracture or traumatic spondylolisthesis. Electronically Signed: Mau Kuo (Brooks), at 18:25 EDT Reading Location ID and State: [facility] / [place] , Service support ,
--- NOTE | 2023-04-17 17:04 | RAD_ITS ---
EXAM: XR RIGHT RIBS AND AP CHEST, 3 OR MORE VIEWS CLINICAL INDICATION: pain TECHNIQUE: Frontal and oblique views of the right ribs and frontal view of the chest. COMPARISON: No relevant prior studies available. FINDINGS: LUNGS AND PLEURAL SPACES: Unremarkable. No consolidation or edema. No pneumothorax. No effusion. HEART: Unremarkable. Cardiac silhouette not enlarged. MEDIASTINUM: Central airways and mediastinal contour are unremarkable. BONES/JOINTS: Unremarkable. No evidence of displaced rib fractures. RAD/Ribs Uni Min 3V w/PA Chest IMPRESSION: Negative chest and right ribs series. Electronically Signed: Mau Kuo (Brooks), at 18:24 EDT ,
--- NOTE | 2023-04-17 17:10 | EX.ED.GENINJ ---
HPI <TELLY Moss - Last Filed: 04/17/23 19:08> History of Present Illness Chief Complaint: Fall Narrative Narrative: Patient presenting today for evaluation after a fall that occurred this afternoon. He was on a ladder about 4 to 5 feet off the ground and states that it was uneven on the ground causing him to fall over onto his back, hitting the back of his head on the ground. He thinks that he may have lost consciousness and states that it could have lasted anywhere from a minute to 30 minutes. The fall was unwitnessed. He denies feeling dazed or confused after the event. He reports that now he has pain to the right side of his middle back as well as to the back of his head. He reports that his head feels full as if there is a lot of pressure inside of it. He denies any chest pain, shortness of breath, abdominal pain, nausea, vomiting, dizziness, and visual changes. [facility] <TELLY Moss - Last Filed: 04/17/23 19:08> [facility] Medical History Atherosclerosis of coronary artery of [place] heart without angina pectoris Essential hypertension GERD (gastroesophageal reflux disease) Hyperlipidemia Non-rheumatic aortic stenosis Home Medications omeprazole 20 mg capsule,delayed release 20 mg PO QDAY 09/28/17 [History Last Taken 02/14/21] nitroglycerin 0.4 mg sublingual tablet 0.4 mg sublingual Q5-15M PRN chest pain #25 tabs 08/26/18 [Rx Last Taken Unknown] aspirin 81 mg tablet,delayed release (Adult Aspirin Regimen) 81 mg PO DAILY 04/22/22 [History Last Taken Unknown] amlodipine 10 mg tablet (Norvasc) 10 mg PO QDAY #90 tabs 10/15/22 [Rx Last Taken Unknown] atorvastatin 80 mg tablet (Lipitor) 80 mg PO QDAY #90 tabs 10/15/22 [Rx Last Taken Unknown] doxazosin 2 mg tablet 2 mg PO DAILY #90 tabs 10/15/22 [Rx Last Taken Unknown] hydrochlorothiazide 25 mg tablet 25 mg PO QAM #90 tabs 10/15/22 [Rx Last Taken Unknown] losartan 50 mg tablet 50 mg PO BID Quinapril has been discontinued #180 tabs 10/15/22 [Rx Last Taken Unknown] metoprolol tartrate 50 mg tablet 50 mg PO BID #180 tabs 10/15/22 [Rx Last Taken Unknown] ranolazine 500 mg tablet,extended release,12 hr (Ranexa) 500 mg PO BID #60 tabs 10/15/22 [Rx Last Taken Unknown] oxymetazoline 0.05 % nasal spray (Afrin (oxymetazoline)) 2 spray intranasal Q12H PRN nasal congestion 04/05/23 [History Last Taken Unknown] sildenafil 25 mg tablet (Viagra) 25 mg PO DAILY PRN sexual activity #20 tabs 04/05/23 [Rx Last Taken Unknown] triamcinolone acetonide 55 mcg nasal spray aerosol (Nasacort) 1 spray intranasal DAILY 04/16/23 [History Last Taken Unknown] hydrocodone-acetaminophen 5-325mg 5mg-325mg 1 tab PO Q4H PRN PRN Pain 3 days #10 TABLETS 04/17/23 [Rx Last Taken Unknown] Allergy/AdvReac Type Severity Reaction Status Date / Time No Known Allergies Allergy Verified 04/17/23 16:51 Family History Father CAD (coronary artery disease) Surgical History History of coronary artery stent placement History of left heart catheterization (02/14/21) Social History adopted: No household members: spouse housing: house number of children: 3 current occupational status: employed 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 occupational exposures/hazards: No pets and animals: Yes pets and animals: cat(s) leisure activities: other history of recent travel: No sexually active: Yes Smoking Status: Never smoker alcohol intake: current details: very sporadic substance use type: does not use well-balanced diet: daily or most days caffeine: Yes eating out: 1-3 times/week during the past year weight has: other details: increase x5 what type of physical activity do you participate in: other abilio/hinduism: Apostolic seatbelt use: always do you feel safe at home: Yes ROS <TELLY Moss - Last Filed: 04/17/23 19:08> ROS ED Constitutional Constitutional ED: Denies chills or fever(s) Eyes Eyes: Denies blurry vision or change in vision Cardiovascular Cardiovascular: Denies chest pain or palpitations Respiratory/Chest Respiratory/Chest: Denies cough or dyspnea Gastrointestinal Gastrointestinal: Denies abdominal pain, nausea or vomiting Musculoskeletal Musculoskeletal: Reports back pain and myalgias; Denies neck pain Integumentary Denies Abrasions Neurologic Neurologic: Denies confusion, dizziness, headache(s), paresthesias or weakness EXAM <Grisel Martins PA - Last Filed: 04/17/23 19:08> Physical Exam Const Vital Signs: 04/17/23 16:51 Temperature 97.6 F L Temperature Source Temporal Pulse Rate 68 Respiratory Rate 16 Blood Pressure 141/76 H Blood Pressure Mean 97 Pulse Ox 96 Oxygen Delivery Method Room Air Positive well nourished, well developed and no apparent distress General Appearance ED: well developed HEENT Reports normocephalic and TM's clear HEENT Narrative: Small superficial abrasion to the posterior aspect of patient's head. Tympanic Membrane ED: Yes TM's clear Mouth ED: Yes moist mucous membranes normal Eyes PERRL and EOMs intact bilaterally Neck full ROM and supple Chest Wall inspection of chest normal Resp normal respiratory effort and clear to auscultation bilaterally Cardio regular rate and regular rhythm GI soft to palpation, non-tender, non-distended and no masses Back/Spine normal ROM Back/Spine Narrative: Small area of edema to the right side of patient's middle back. Slight midline tenderness to the thoracic spine with full range of motion of the cervical, thoracic, and lumbar spine. No step-offs or crepitus. Posterior right rib cage painful to palpation without any crepitus. Extremity normal to inspection and full ROM Neuro oriented x3, CN's II-XII intact bilaterally, moves all extremities, no focal motor deficits and no sensory deficits noted Sensorium / Orientation: awake and alert Motor Exam: strength 5/5 throughout Psych mental status grossly normal and thought process normal Skin no rashes or lesions noted and no wounds <Dr. Chester Rowland DO - Last Filed: 04/17/23 18:40> Physical Exam Const Vital Signs: 04/17/23 16:51 Temperature 97.6 F L Temperature Source Temporal Pulse Rate 68 Respiratory Rate 16 Blood Pressure 141/76 H Blood Pressure Mean 97 Pulse Ox 96 Oxygen Delivery Method Room Air [facility] <TELLY Moss - Last Filed: 04/17/23 19:08> [facility] Narrative Medical decision making narrative: Patient presenting today for evaluation after a fall that occurred off of a ladder that was about 4 to 5 feet off the ground. He did fall backwards and hit his head on the ground and thinks he may have lost consciousness that lasted anywhere from a minute or 2 to 30 minutes. He is well-appearing and in no acute distress he was able to ambulate into the room. Vitals are unremarkable. He has a small superficial abrasion to the posterior scalp. He has pain to palpation to the posterior right rib cage as well as very minimally to the thoracic spine. He does have a area of edema to the right posterior rib cage. Head and neck CTs will be obtained to rule out intracranial hemorrhage and cervical fracture and are negative. X-ray of the lumbar and thoracic spine and right rib cage obtained to rule out fracture and are negative. He was given [place] here for pain and will be given a prescription for this. He has been given head injury precautions and reasons to return. He is to follow-up with his PCP and will be discharged in stable condition. He is comfortable with plan. Radiography X-Ray: Read by ED Physician and Read by Radiologist Diagnostic Testing: Clinical Impression(s) from Imaging Studies Brain CT 04/17/23 17:04 IMPRESSION: No acute intracranial hemorrhage or mass effect. Electronically Signed: Mau Kuo (Brooks), at 18:15 EDT , Cervical Spine CT 04/17/23 17:04 IMPRESSION: No acute findings in the cervical spine. Pending Final Proof Editing Ribs w/Chest X-Ray 04/17/23 17:04 IMPRESSION: Negative chest and right ribs series. Electronically Signed: Mau Kuo (Brooks), at 18:24 EDT , Thoracic Spine X-Ray 04/17/23 17:04 IMPRESSION: No compression fracture or traumatic spondylolisthesis. Electronically Signed: Mau MayraCannonCheo Kuo, at 18:25 EDT , Lumbar Spine X-Ray 04/17/23 18:04 IMPRESSION: Degenerative changes of the spine, as detailed above. Electronically Signed: Mau NuzhatsCheo Kuo, at 18:23 EDT , <Dr. Chester Rowland, DO - Last Filed: 04/17/23 18:40> MDM Radiography Diagnostic Testing: Clinical Impression(s) from Imaging Studies Brain CT 04/17/23 17:04 IMPRESSION: No acute intracranial hemorrhage or mass effect. Electronically Signed: Mau Kuo (Brooks), at 18:15 EDT , Cervical Spine CT 04/17/23 17:04 IMPRESSION: No acute findings in the cervical spine. Pending Final Proof Editing Ribs w/Chest X-Ray 04/17/23 17:04 IMPRESSION: Negative chest and right ribs series. Electronically Signed: Mau Kuo (Brooks), at 18:24 EDT , Thoracic Spine X-Ray 04/17/23 17:04 IMPRESSION: No compression fracture or traumatic spondylolisthesis. Electronically Signed: Mau Kuo (Brooks), at 18:25 EDT , Lumbar Spine X-Ray 04/17/23 18:04 IMPRESSION: Degenerative changes of the spine, as detailed above. Electronically Signed: Mau Kuo (Brooks), at 18:23 EDT , Treatment and Re-Evaluation Narrative: I have personally performed a face to face assessment of the patient and have reviewed the IVETT Note. I performed a substantive portion of the visit including all aspects of the following. My la findings include: History: Patient presents after a fall that occurred today. Patient states he was 4 feet high on a ladder when the ladder gave way and fell. Patient states he fell onto his right side. Patient hit the back of his head. Patient admits to a loss of consciousness. Patient does not know how long he was out for. Patient thinks was a few minutes to approximately 30 minutes. Patient denies any neck pain. Patient admits to some posterior right rib pain. Patient denies any shortness of breath or cough. Patient denies any nausea or vomiting. Patient denies any paresthesias or weakness. Exam: Vital signs are stable. Patient is afebrile. Patient is in no acute distress. Skin is warm dry. There is a superficial abrasion over the posterior aspect of the right scalp. There is no active bleeding noted. There is no bony crepitance or step-off noted. Cranial nerves II through XII are intact. There are no focal motor or sensory deficits noted. Strength is 5/5 bilateral in the upper and lower extremities. There are no sensory deficits noted. Heart was regular rate and rhythm. Lungs are clear and equal bilaterally. Abdomen is soft. Bowel sounds are normal. There is no tenderness. There is tenderness over the posterior right ribs. There is no bony crepitance or step-off. There is no subcutaneous emphysema palpated. Medical Decision Making: Differential diagnosis includes intracranial bleeding, closed head injury, concussion, cervical strain, fracture, right rib fracture, and chest wall contusion. CT scan of the brain will be obtained to assess for intracranial bleeding. CT scan of the cervical spine will be obtained to assess for cervical spine fracture and dislocation. X-rays of the right ribs will be obtained to assess for rib fracture. X-rays of the thoracic spine will be obtained to assess for spinous fracture. X-rays of the lumbar spine will be obtained to assess for lumbar spine fracture. CT scan of the brain was obtained. There is no evidence of intracranial bleeding. This was interpreted by the radiologist and was also dependently reviewed by myself. CT scan of the cervical spine was obtained. There is no acute fracture or dislocation. This was interpreted by the radiologist and was also independently reviewed by myself. X-rays of the right ribs were obtained. There are 5 views. On my independent interpretation, there is no acute fracture or pneumothorax. There is no acute cardiopulmonary process. Radiologist also interpreted the x-rays and agrees. X-rays of the lumbar spine were obtained. There are 3 views. On my independent interpretation, there is no acute fracture or spondylolisthesis. There are moderate degenerative changes noted. Radiologist also interpreted the x-rays and agrees. X-rays of the thoracic spine were obtained. There are 3 views. On my independent interpretation, there is no acute fracture. There is no spondylolisthesis noted. There are mild degenerative changes noted. Radiologist also interpreted the x-rays and agrees. Patient was advised of his findings. Patient was instructed to use ice to the area. Patient was given a prescription for short course of [place]. Patient was given his first dose here. Patient was instructed to follow-up with his primary care physician in 5 to 7 days. Patient understood and was agreeable with the plan. All questions were answered. Discharge Plan Triage Chief Complaint: Fall ED Midlevel Provider: Grisel Martins ED Provider: Chester Rowland Dx/Rx/DC Orders Clinical Impression: Back strain, Contusion of rib on right side, Head injury, Fall Instructions: ED Back Pain (Acute or Chronic), ED Head Injury (Adult), ED Bruise, Rib Prescriptions: New hydrocodone-acetaminophen 5-325 mg tablet 1 tab PO Q4H PRN PRN (Reason: Pain) 3 Days Qty: 10 0RF No Action omeprazole 20 mg capsule,delayed release(DR/EC) 20 mg PO QDAY aspirin [Adult Aspirin Regimen] 81 mg tablet,delayed release (DR/EC) 81 mg PO DAILY amlodipine [Norvasc] 10 mg tablet 10 mg PO QDAY Qty: 90 3RF atorvastatin [Lipitor] 80 mg tablet 80 mg PO QDAY Qty: 90 3RF doxazosin 2 mg tablet 2 mg PO DAILY Qty: 90 3RF hydrochlorothiazide 25 mg tablet 25 mg PO QAM Qty: 90 3RF metoprolol tartrate 50 mg tablet 50 mg PO BID Qty: 180 3RF ranolazine [Ranexa] 500 mg tablet extended release 12 hr 500 mg PO BID Qty: 60 11RF oxymetazoline [Afrin (oxymetazoline)] 0.05 % spray,non-aerosol 2 spray intranasal Q12H PRN (Reason: nasal congestion) sildenafil [Viagra] 25 mg tablet 25 mg PO DAILY PRN (Reason: sexual activity) Qty: 20 0RF Rx Instructions: administer 30 minutes to 4 hours before activity triamcinolone acetonide [Nasacort] 55 mcg aerosol,spray 1 spray intranasal DAILY Rx Instructions: administer into each nostril nitroglycerin 0.4 mg tablet, sublingual 0.4 mg SUBLINGUAL Q5-15M PRN (Reason: chest pain) Qty: 25 3RF losartan 50 mg tablet 50 mg PO BID Qty: 180 3RF Primary Care Provider: Tiki Vallecillo Referrals: Tiki Vallecillo MD [Primary Care Provider] - 3-5 Days Activity Restrictions/Additional Instructions: Follow-up with your PCP and return for any worsening of your symptoms. Ice your ribs several times a day for the next few days. Disposition Disposition: Home, Self Care Discharge Date/Time: 04/17/23 18:46
--- NOTE | 2023-04-17 18:04 | RAD_ITS ---
STUDY: X-RAY - LUMBAR SPINE REASON FOR EXAM: Male, 72 years old. Fall from ladder, pain TECHNIQUE: 3 view(s) of the lumbar spine were obtained. COMPARISON: None FINDINGS: Normal lumbar lordosis. There is no substantial scoliosis. Degenerative retrolisthesis at L2-L3 and L3-L4. Multilevel facet arthropathy. There is multilevel endplate spondylosis of the lumbar vertebrae. There is multi-level degenerative disc disease with multi-level disc space narrowing most evident at L4-L5. There is no demonstrated fracture. There is atherosclerotic calcification of the abdominal aorta without a demonstrated aneurysm. RAD/Lumbar Spine 2 or 3 Views IMPRESSION: Degenerative changes of the spine, as detailed above. Electronically Signed: Mau Kuo (Brooks), at 18:23 EDT ,
[2023-04-17] MEDS: HYDROcodone Bitartrate/Apap 5/325 Tablet PO (18:33)
[2023-04-17 18:42] VITALS: BMI 30.4
[2023-04-17] MEDS: Ondansetron ODT 4 MG Tablet PO (18:43)
== END 2023-04-17 18:46 | disposition home or self-care (01) ==
PROVIDERS: Emergency Provider Emergency Medicine; PCP Internal Medicine; Visit Provider Emergency Medicine
DX: S09.90XA Unspecified injury of head, initial encounter (principal); S20.211A Contusion of right front wall of thorax, initial encounter; E78.5 Hyperlipidemia, unspecified; I25.10 Atherosclerotic heart disease of native coronary artery without angina pectoris; I10 Essential (primary) hypertension; S39.012A Strain of muscle, fascia and tendon of lower back, initial encounter; W11.XXXA Fall on and from ladder, initial encounter; S00.01XA Abrasion of scalp, initial encounter
CPT/HCPCS: 70450; 71101; 72072; 72100; 72125; 99283

== ENCOUNTER 2023-04-22 08:38 | Emergency (ER) | payer MEDICARE, OTHER, SELFPAY ==
[2023-04-22 08:39] VITALS: BP 119/75; PULSE 65; RESP 14; TEMP 36.6; O2SAT 93; BMI 30.4
--- NOTE | 2023-04-22 09:13 | CT_ITS ---
INDICATION: Fever and cough, chest pain EXAMINATION: CT CHEST WITHOUT CONTRAST - CT Chest W/O Contrast Injection TECHNIQUE: Helically acquired images were obtained of the chest. A radiation dose optimization technique was used for this scan. IV Contrast dosage and agent: None. COMPARISON: Previous chest x-rays FINDINGS: LUNGS, PLEURA AND LARGE AIRWAYS: Lung windows show free-flowing bilateral pleural effusions with associated atelectasis, right greater than left. No suspicious noncalcified mass or nodule. Inflammatory changes could be present in the lung bases, follow-up is recommended to ensure complete resolution. THYROID: No thyroid lesions. HEART AND PERICARDIUM: Heart size is normal. No pericardial effusion. CORONARY ARTERIES: Coronary artery calcification is seen. VESSELS: Thoracic aorta is not dilated. MEDIASTINUM AND THEO: No suspicious mediastinal or hilar adenopathy. Esophagus is unremarkable. Small retrocardiac hiatal hernia UPPER ABDOMEN: Limited cuts through the upper abdomen show simple left renal cysts BONES: No suspicious lytic or blastic abnormality. CT/Chest without Contrast IMPRESSION: Free flowing bilateral pleural effusions, right greater than left with associated atelectasis and/or inflammation. Follow-up recommended to ensure complete resolution. Calcified coronary vessels No suspicious adenopathy Degenerative bony changes Simple left renal cysts, no specific follow-up needed Electronically Signed: Mariusz Vo MD at 10:13 EDT ,
--- NOTE | 2023-04-22 12:25 | EX.ED.GENINJ ---
HPI History of Present Illness Chief Complaint: Chest Other Informant: patient Narrative Narrative: Patient had an accidental fall off of a ladder 5 days ago. He states he was for 5 feet up, the ladder went [address] causing him to go the other, he landed on his back and hit his head he was seen here in emergency department had imaging of his head and his entire spine, CT of his head and cervical spine were negative and the x-rays of the rest were negative as well. States he continues to have pain but now mostly in the right chest wall and upper-mid back, and it is causing him to have episodes where he feels like the wind is knocked out of him and it is hard to take a breath in and not necessarily because of pain, he calls them spasms/episodes. He has had no loss of consciousness. He is still having significant pain especially when he moves, lays on his right side, or takes a deep breath especially with coughing. No dyspnea. [facility] Medical History Atherosclerosis of coronary artery of [place] heart without angina pectoris Essential hypertension GERD (gastroesophageal reflux disease) Hyperlipidemia Non-rheumatic aortic stenosis Home Medications omeprazole 20 mg capsule,delayed release 20 mg PO QDAY 09/28/17 [History Last Taken 02/14/21] nitroglycerin 0.4 mg sublingual tablet 0.4 mg sublingual Q5-15M PRN chest pain #25 tabs 08/26/18 [Rx Last Taken Unknown] aspirin 81 mg tablet,delayed release (Adult Aspirin Regimen) 81 mg PO DAILY 04/22/22 [History Last Taken Unknown] amlodipine 10 mg tablet (Norvasc) 10 mg PO QDAY #90 tabs 10/15/22 [Rx Last Taken Unknown] atorvastatin 80 mg tablet (Lipitor) 80 mg PO QDAY #90 tabs 10/15/22 [Rx Last Taken Unknown] doxazosin 2 mg tablet 2 mg PO DAILY #90 tabs 10/15/22 [Rx Last Taken Unknown] hydrochlorothiazide 25 mg tablet 25 mg PO QAM #90 tabs 10/15/22 [Rx Last Taken Unknown] losartan 50 mg tablet 50 mg PO BID Quinapril has been discontinued #180 tabs 10/15/22 [Rx Last Taken Unknown] metoprolol tartrate 50 mg tablet 50 mg PO BID #180 tabs 10/15/22 [Rx Last Taken Unknown] ranolazine 500 mg tablet,extended release,12 hr (Ranexa) 500 mg PO BID #60 tabs 10/15/22 [Rx Last Taken Unknown] oxymetazoline 0.05 % nasal spray (Afrin (oxymetazoline)) 2 spray intranasal Q12H PRN nasal congestion 04/05/23 [History Last Taken Unknown] sildenafil 25 mg tablet (Viagra) 25 mg PO DAILY PRN sexual activity #20 tabs 04/05/23 [Rx Last Taken Unknown] triamcinolone acetonide 55 mcg nasal spray aerosol (Nasacort) 1 spray intranasal DAILY 04/16/23 [History Last Taken Unknown] hydrocodone-acetaminophen 5-325mg 5mg-325mg 1 tab PO Q4H PRN PRN Pain 3 days #10 TABLETS 04/17/23 [Rx Last Taken Unknown] oxycodone-acetaminophen 5 mg-325 mg tablet 1 tab PO Q6H PRN PRN pain 5 days #20 TABLETS 04/22/23 [Rx Last Taken Unknown] Allergy/AdvReac Type Severity Reaction Status Date / Time No Known Allergies Allergy Verified 04/22/23 08:40 Family History Father CAD (coronary artery disease) Surgical History History of coronary artery stent placement History of left heart catheterization (02/14/21) Social History adopted: No household members: spouse housing: house number of children: 3 current occupational status: employed 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 occupational exposures/hazards: No pets and animals: Yes pets and animals: cat(s) leisure activities: other history of recent travel: No sexually active: Yes Smoking Status: Never smoker alcohol intake: current details: very sporadic substance use type: does not use well-balanced diet: daily or most days caffeine: Yes eating out: 1-3 times/week during the past year weight has: other details: increase x5 what type of physical activity do you participate in: other abilio/sikh: Apostolic seatbelt use: always do you feel safe at home: Yes ROS ROS ED Constitutional Constitutional ED: Denies chills or fever(s) Eyes Eyes: Denies change in vision or diplopia ENT ENT ED: Denies rhinorrhea or sore throat Cardiovascular Cardiovascular: Reports chest pain; Denies palpitations Respiratory/Chest Respiratory/Chest: Reports cough; Denies dyspnea or sputum Gastrointestinal Gastrointestinal: Denies abdominal pain, diarrhea, nausea or vomiting Genitourinary Genitourinary ED: Denies dysuria or hematuria Musculoskeletal Musculoskeletal: Reports back pain; Denies neck pain Integumentary Denies abscess or rash Neurologic Neurologic: Denies headache(s), paresthesias or weakness Psychiatric Psychiatric: Denies anxiety or suicidal thoughts EXAM Physical Exam Const Vital Signs: 04/22/23 08:39 04/22/23 09:29 Temperature 97.9 F Temperature Source Temporal Pulse Rate 65 Respiratory Rate 14 Respiratory Effort Normal Non-Labored Blood Pressure 119/75 Blood Pressure Mean 89 Pulse Ox 93 Oxygen Delivery Method Room Air Positive well nourished and well developed General Appearance ED: well developed and NAD HEENT Reports moist mucous membranes normocephalic and atraumatic Eyes PERRL and EOMs intact bilaterally Neck full ROM and supple Chest Wall Chest Narrative: Tender in the right upper anterior lateral chest wall in addition to the right posterior rib cage, there are several areas of ecchymosis in his back, there is one with a kake around it that his [place] that is low right lumbar, and there is another 1 just caudal to the tip of the right scapula. Mildly tender. No palpable subcutaneous emphysema or step-off/flail. Resp normal respiratory effort and clear to auscultation bilaterally Resp Narrative: Equal breath sounds present bilaterally. Trachea midline. Cardio regular rate, regular rhythm and no murmurs GI non-tender and non-distended Auscultation: normoactive bowel sounds Palpation: soft Back/Spine no CVA tenderness General Back: other FROM Extremity normal to inspection General Extremety ED: Negative for edema, pulses abnormal or tenderness General Extremity: Negative for edema or pulses abnormal Neuro oriented x3, CN's II-XII intact bilaterally and no sensory deficits noted Sensorium / Orientation: awake and alert Motor Exam: strength 5/5 throughout Skin no rashes or lesions noted and no wounds MDM MDM MDM Narrative Medical decision making narrative: I performed a CT of his thorax without contrast. This did show occult rib fractures x2, posterior and minimally displaced, in addition to minimally displaced transverse process fractures at L1-2 and at L3. According to an additional addendum it seems that there are also spinous process fractures. I discussed these with Dr. Mead who was on for spine, agrees that all of this is stable and does not require admission or any other emergent studies right now, the patient states he is really not even hurting in his low back it is more the ribs. I am giving him an incentive spirometer, he has a wrap that he brought with him which I am advising him not to use as a rib binder, and prescribe him additional pain medications that will help more than the hydrocodone. I do not think I can fix his other episodes, I think this is mostly a pain control issue and using pain as her guide to do things such as movements, transitions/position changes, and coughing. Dr. Mead said the patient could follow-up in his office if he wished within the next week or 2, patient was told this and given his discharge information with the referral and prescription for analgesics and an incentive spirometer with instructions. Radiography Diagnostic Testing: Clinical Impression(s) from Imaging Studies Chest CT 04/22/23 09:13 IMPRESSION: Free flowing bilateral pleural effusions, right greater than left with associated atelectasis and/or inflammation. Follow-up recommended to ensure complete resolution. Calcified coronary vessels No suspicious adenopathy Degenerative bony changes Simple left renal cysts, no specific follow-up needed Electronically Signed: Mariusz Vo MD at 10:13 EDT Reading Location ID and State: [facility] / [place] , Service support , ADDENDUM: 04/22/23 1054 IMPRESSION: Acute minimally displaced right posterior seventh and 10th rib fractures. Acute minimally displaced right transverse process fractures at L1-L2 and L3 Electronically Signed: Mariusz Vo MD at 10:47 EDT , ADDENDUM by Dr. Ramiro Vo MD on 04/22/23 at 1047 ADDENDUM ADDENDUM: Not mentioned in the original dictation but present or acute minimally displaced posterior right seventh and 10th rib fractures, along with acute minimally displaced right spinous process fractures at L1, L2, and L3. No demonstrated thoracic vertebral body fracture. 04/22/23 1047 Discharge Plan Triage Chief Complaint: Chest Other ED Provider: Andrea Dupont Dx/Rx/DC Orders Clinical Impression: Closed fracture of spinous process of lumbar vertebra, Multiple fractures of ribs, right side, initial encounter for closed fracture, Closed fracture of transverse process of lumbar vertebra Instructions: Using an Incentive Spirometer, ED Rib Fracture, ED Transverse Process Fracture Prescriptions: New oxycodone-acetaminophen [oxycodone-acetaminophen] 5-325 mg tablet 1 tab PO Q6H PRN PRN (Reason: pain) 5 Days Qty: 20 0RF No Action omeprazole 20 mg capsule,delayed release(DR/EC) 20 mg PO QDAY aspirin [Adult Aspirin Regimen] 81 mg tablet,delayed release (DR/EC) 81 mg PO DAILY amlodipine [Norvasc] 10 mg tablet 10 mg PO QDAY Qty: 90 3RF atorvastatin [Lipitor] 80 mg tablet 80 mg PO QDAY Qty: 90 3RF doxazosin 2 mg tablet 2 mg PO DAILY Qty: 90 3RF hydrochlorothiazide 25 mg tablet 25 mg PO QAM Qty: 90 3RF metoprolol tartrate 50 mg tablet 50 mg PO BID Qty: 180 3RF ranolazine [Ranexa] 500 mg tablet extended release 12 hr 500 mg PO BID Qty: 60 11RF oxymetazoline [Afrin (oxymetazoline)] 0.05 % spray,non-aerosol 2 spray intranasal Q12H PRN (Reason: nasal congestion) sildenafil [Viagra] 25 mg tablet 25 mg PO DAILY PRN (Reason: sexual activity) Qty: 20 0RF Rx Instructions: administer 30 minutes to 4 hours before activity triamcinolone acetonide [Nasacort] 55 mcg aerosol,spray 1 spray intranasal DAILY Rx Instructions: administer into each nostril hydrocodone-acetaminophen 5-325 mg tablet 1 tab PO Q4H PRN PRN (Reason: Pain) 3 Days Qty: 10 0RF nitroglycerin 0.4 mg tablet, sublingual 0.4 mg SUBLINGUAL Q5-15M PRN (Reason: chest pain) Qty: 25 3RF losartan 50 mg tablet 50 mg PO BID Qty: 180 3RF Primary Care Provider: Tiki Vallecillo Referrals: Tiki Vallecillo MD [Primary Care Provider] - 1-2 Weeks Nixon Mead DO [Med Staff - Active Staff] - 10-14 Days if not better Disposition Disposition: Home, Self Care Discharge Date/Time: 04/22/23 12:57
== END 2023-04-22 12:57 | disposition home or self-care (01) ==
PROVIDERS: Emergency Provider Emergency Medicine; PCP Internal Medicine; Visit Provider Emergency Medicine
DX: S22.41XA Multiple fractures of ribs, right side, initial encounter for closed fracture (principal); S32.018A Other fracture of first lumbar vertebra, initial encounter for closed fracture; S32.028A Other fracture of second lumbar vertebra, initial encounter for closed fracture; S32.038A Other fracture of third lumbar vertebra, initial encounter for closed fracture; I10 Essential (primary) hypertension; E78.5 Hyperlipidemia, unspecified; I25.10 Atherosclerotic heart disease of native coronary artery without angina pectoris; W11.XXXA Fall on and from ladder, initial encounter
CPT/HCPCS: 71250; 99282

== ENCOUNTER → 2023-05-11 | Outpatient (CLI) | payer MEDICARE, OTHER, SELFPAY | END | disposition home or self-care (01) | LOC: SL 10:50 | PROVIDERS: PCP Internal Medicine; Visit Provider Nurse Practitioner Acute Care | DX: G47.33 Obstructive sleep apnea (adult) (pediatric) (principal) | CPT/HCPCS: 95806 ==

== ENCOUNTER 2023-06-28 07:00 | Outpatient (RCR) | payer MEDICARE, OTHER, SELFPAY ==
--- NOTE | 2023-06-02 09:29 | HP.PTEVAL ---
Patient's Visit Information Visit Information Visit Information: YADIEL CHAVARRIA is a 72 year old M referred to Physical Therapy by Dr. Tiki Vallecillo MD with a diagnosis of vertigo. Date of Evaluation: 06/02/23 Physical Therapist: Chester Cantor, DPT, OCS, CSCS Visit Plan Frequency: 1-2x /Week Duration: 2-4 Weeks Plan: 1-2x/week x 2-4 weeks as needed for positional exercises and treatments and vestibular therapy . Has + R HD today and questionable L HD +, Treated with R mark anthony x 2 today. Taught BD 8 reps also for as needed. Subjective Subjective: A month ago fell off a ladder and hit head and knocked out for a while. Went to hospital and was dizzy wheeling around in hospital. Getting in and out of bed was bad. Last night did not have any problem going to bed for the first time. also broke ribs and still recovering from that. No real head pain or neck pain. had scans in the hospital and no brain bleed. Fell off ladder as it kicked out. Dizzyness in the last week has been mostly looking up and things started spinning for less than a minute and had to hold on. This can happen if he moves hi s head looking up, lying down in bed. Feels mostly normal in between the epidsodes although motion sickness may linger. Activities looking up are limited. Slept OK last night, but was dizzy prior. 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 Basic ADLs are getting done. No problems cognitively that he can tell. Objective Objective: Walks into PT with good balance and normal gait and trasnfers I. Steps reciprocal without rail. cervical AROM is full and painfree, UE AROM is limited L elevation which he says is normal for him. Strength UE 4/5 without myhotomal problems. Sensation UE WNL to gross light touch. HD L mostly negative but quick 1 second nystagmus up torsional after about 20 seconds. HD R + for 8 second s up torsional nystagmus, treated with Mark Anthony x 2 without improvements first time and becoming sweaty and slightly nauseous after the second time. Held at this point after treating with modified mark anthony 2x. Balance/Special Test Scores Functional Gait Assessment Score: 28 % Disability: 6.6700 Dizziness Score: 40 Goals Goal 1:: Abolish vertigo with lying down at night. Goal Time Frame: 2-4 Weeks Goal 2:: pt feel dizzyness 100% abolished Goal Time Frame: 2-4 Weeks Goal 3:: DHI 8 or better Goal Time Frame: 2-4 Weeks Rehabilitation Potential Physical Therapy Diagnosis: Likely BPPV complicated but R PC Rehabilitation Potential: Good Anticipated Interventions Patient/Client Instruction: Educate patient on: Condition and Plan of Care For the Purpose of:: To increase tolerance to activity/condition/position Comment: vestibular , positional For the Purpose of:: To increase tolerance to activity/condition/position Text: Thank you for the opportunity to evaluate your patient. For Medicare and Medicare HMO plans, please review the plan of care and approve it. It will need to be FAXED BACK to us at [phone] for Medicare purposes. For Medicare only, by signing this I certify the plan of care. Please let me know if there are questions or concerns regarding this plan of care. Physician Signature: Date:
--- NOTE | 2023-06-28 07:22 | HP.PTDCSUM_ITS ---
Discharge Summary D/C summary: It has been my pleasure to treat YADIEL CHAVARRIA referred by Dr. Tiki Vallecillo MD, with the diagnosis of vertigo for a total of 3 visit(s). Discharge Date: 06/28/23 Please see the following information for a summary of their discharge status. Subjective Subjective: Dizzyness mostly gone. None with exercises, noen otherwise. Activity is not a problem. Shoulder L is worse as he had to steer equipment with L arm out to side. Shou lder is painful in bed lying on r side and hangs across side. Lying on back is OK. Putting on a coat is still painful. Comfortable at rest. Arm up to side hurts. Pain L shoulder pain: Pain Intensity (Out of 10): 5 Overall Improvement % Improvement: 100 Objective Objective/Function: - B hallpike polly and roll test. good balance coming in to PT. L shoulder hurts to take jacket off and lift especially out to side. Tender over supraspinatus insertion L. er is weak and painful, abduction is weak. - ext rotation lag test - drop arm. likely supraspinatus tendonitis. Pt will check with doctor on next step for shoulder(therapy, vs imaging, vs injection, etc) Goals Goal 1:: Abolish vertigo with lying down at night. Goal Progress: Goal Met Goal 2:: pt feel dizzyness 100% abolished Goal Progress: 100 Goal 3:: DHI 8 or better Goal Progress: Goal Met Plan Plan: d/c for vertigo as he is doing well. 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 I would be happy to see him for his shoulder if ordered. D/C Information d/c sentence: If there are questions or concerns regarding this patient's physical therapy, please feel free to call me at [phone]. Thank you for the referral of this patient. Sincerely, Chester Cantor, DPT, OCS, CSCS Balance/Gait/Functional tests Balance/Special Test Scores Functional Gait Assessment Score: 29 % Disability: 3.3400 Dizziness Score: 0 Improvement % Improvement: 100
== END 2023-06-28 19:00 | disposition home or self-care (01) ==
LOC: PT 07:00
PROVIDERS: PCP Internal Medicine; Referring Provider Internal Medicine; Visit Provider Internal Medicine
DX: R42 Dizziness and giddiness (principal)
CPT/HCPCS: 97161; 97530

== ENCOUNTER → 2023-10-21 | Outpatient (CLI) | payer MEDICARE, OTHER, SELFPAY ==
--- OUTSIDE RECORDS SUMMARY | 2023-10-21 07:15 | XMS RPT_ITS | CCD ---
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 Name Role Phone Rosario Solano Unavailable Unavailable Medications Completed/Discontinued Medications Medication Drug Class(es) Dates Sig (Normalized) Sig (Original) amLODIPine 10 mg oral tablet (1 source) Dihydropyridine Calcium Channel Mansi Start: 02-20-2011 take 1 tablet by mouth once daily NORVASC 10 MG TABS One tablet by mouth daily AMLODIPINE BESYLATE [id number] Vaibhav Mead MD aspirin 81 mg oral tablet (3 sources) Nonsteroidal Anti-inflammatory Drug Start: 07-11-2013 take 1 tablet by mouth once daily ASPIRIN 81 MG TABS One tablet by mouth daily ASPIRIN [id number] Vaibhav Mead MD Problems Active Problems Problem Classification Problem Date Documented Date Episodic/Chronic Coronary atherosclerosis and other heart disease (3 sources) Atherosclerotic heart disease of [place] coronary artery without angina pectoris; Translations: [Coronary arteriosclerosis in [place] artery] Onset: 02-20-2011 10-28-2015 Chronic Disorders of lipid metabolism (1 source) Hyperlipidemia; Translations: [Hyperlipidemia, unspecified] Onset: 02-20-2011 02-20-2011 Chronic Esophageal disorders (1 source) Gastroesophageal reflux disease; Translations: [Gastro-esophageal reflux disease without esophagitis] Onset: 07-31-2014 07-31-2014 Chronic Essential hypertension (1 source) Hypertensive disorder; Translations: [Essential (primary) hypertension] Onset: 02-20-2011 02-20-2011 Chronic Heart valve disorders (1 source) Nonrheumatic aortic (valve) stenosis; Translations: [Nonrheumatic aortic (valve) stenosis] Onset: 02-20-2011 10-28-2015 Chronic Unclassified (1 source) Long-term drug therapy; Translations: [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 terminal 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) drug therapy] Onset: 04-09-2011 04-09-2011 Unclassified (1 source) Placement of stent in coronary artery ; Translations: [Presence of coronary angioplasty implant and graft] Onset: 02-20-2011 10-28-2015 Past or Other Problems Problem Classification Problem Date Documented Da te Episodic/Chronic Coronary atherosclerosis and other heart disease (2 sources) Presence of coronary angioplasty implant and graft; Translations: [Coronary angioplasty status] Onset: 02-20-2011 07-30-2015 Episodic Nonspecific chest pain (3 sources) Other chest pain; Translations: [Chest pain, unspecified] Onset: 02-20-2011 Resolved: 08-03-2016 08-05-2015 Episodic Unclassified (1 source) Body mass index (BMI) 28.0-28.9, adult; Translations: [Body mass index (BMI) 28.0-28.9, adult] Onset: 07-11-2013 07-11-2013 Episodic Results Test Name Value Interpretation Reference Range Facil ity Vital Signs Date Time Vital Sign Value Performing Clinician Adalid russo 08-05-2017 13:28-0500 BMI (Body Mass Index) 28.03 kg/m2 Rosario [facility] Work Phone: 08-05-2017 13:28-0500 BP Diastolic 76 mm[Hg] Rosario Mcclure [facility] Work Phone: 08-05-2017 13:28-0500 BP Systolic 138 mm[Hg] Rosario Mcclure [facility] Work Phone: 08-05-2017 13:28-0500 Height 170.18 cm Rosario Mcclure [facility] Work Phone: 08-05-2017 13:28-0500 Pulse (Heart Rate) 60 /min Rosario Mcclure [facility] Work Phone: 08-05-2017 13:28-0500 Respiratory Rate 16 /min Rosario Mcclure [facility] Work Phone: 08-05-2017 13:28-0500 Weight 81.19 kg [facility] Work Phone: 08-03-2016 13:10-0500 BSA (Body Surface Area) 1.94 m2 [facility] Work Phone: Procedures Date Procedure Procedure Detail Performing Clinician Start: 08-05-2017 End: 08-05-2017 NAYLA Mead MD Work Phone: Start: 08-05-2017 End: 08-05-2017 Follow Up Appt 6 months Vaibhav Mead MD Work Phone: Start: 01-25-2017 End: 01-25-2017 NAYLA Mead MD Work Phone: Start: 01-25-2017 End: 01-25-2017 Follow Up Appt 6 months Vaibhav Mead MD Work Phone: Start: 01-11-2017 End: 02-27-2017 *Hepatic Function Panel Vaibhav Mead MD Work Phone: Start: 01-11-2017 End: 02-27-2017 Lipid 1996 panel - Serum or Plasma Vaibhav Mead MD Work Phone: Start: 08-03-2016 End: 08-03-2016 NAYLA Mead MD Work Phone: Start: 08-03-2016 End: 08-03-2016 Follow Up Appt 6 months Vaibhav Mead MD Work Phone: Start: 01-27-2016 End: 07-16-2016 *Hepatic Function Panel Vaibhav Mead MD Work Phone: Start: 01-27-2016 End: 07-16-2016 Lipid 1996 panel - Serum or Plasma Vaibhav Mead MD Work Phone: Start: 08-05-2015 End: 08-05-2015 NAYLA Mead MD Work Phone: Start: 08-05-2015 End: 10-28-2015 Buck Mead MD Work Phone: Start: 08-05-2015 End: 08-05-2015 Follow Up Appt 1 year Maciel Ramos Work Phone: Start: 08-05-2015 End: 10-30-2015 Stress Echocardiogram (treadmill) Vaibhav Mead MD Work Phone: Start: 07-23-2015 End: 07-29-2015 *Hepatic Function Panel Vaibhav Mead MD Work Phone: Start: 07-23-2015 End: 07-29-2015 Lipid 1996 panel - Serum or Plasma Vaibhav Mead MD Work Phone: Start: 07-31-2014 End: 07-31-2014 JANETN Vaibhav Mead MD Work Phone: Start: 07-31-2014 End: 07-31-2014 Follow Up Appt 1 year Maciel Ramos Work Phone: Start: 07-31-2014 End: 07-19-2015 Gastroenterology Referral Vaibhav whalen MD Work Phone: Start: 07-12-2014 End: 07-31-2014 *Hepatic Function Panel Vaibhav Mead MD Work Phone: Start: 07-12-2014 End: 07-13-2014 Lipid 1996 panel - Serum or Plasma Vaibhav Mead MD Work Phone: Start: 05-07-2014 End: 07-31-2014 Lipid 1996 panel - Serum or Plasma Tiffanie Jama PA-C Work Phone: Start: 12-14-2013 End: 12-14-2013 *Hepatic Function Panel Tiffanie garcia PA-C Work Phone: Start: 12-11-2013 End: 07-12-2014 *Hepatic Function Panel Tiffanie garcia PA-C Work Phone: Start: 07-11-2013 End: 07-11-2013 NAYLA Mead MD Work Phone: Start: 07-11-2013 End: 07-11-2013 Follow Up Appt 1 year Maciel Ramos Work Phone: Start: 07-11-2013 End: 07-31-2014 Stress Echocardiogram (treadmill) Vaibhav Mead MD Work Phone: Start: 07-07-2013 End: 11-21-2013 *Hepatic Function Panel Tiffanie garcia PA-C Work Phone: Start: 07-07-2013 End: 11-21-2013 Lipid 1996 panel - Serum or Plasma Tiffanie Jama PA-C Work Phone: Start: 12-21-2012 End: 01-06-2013 *Hepatic Function Panel Neil Mendez MD Start: 12-21-2012 End: 01-06-2013 Lipid 1996 panel - Serum or Plasma Neil Mendez MD Start: 11-03-2012 End: 07-11-2013 Follow Up Appt 6 months Neil Mendez MD Start: 09-22-2012 End: 10-04-2012 *BMP Neil Mendez MD Start: 09-22-2012 End: 10-04-2012 *CBC with Differential Neil Mendez MD Start: 09-22-2012 End: 10-04-2012 Chest x-ray Neil Mendez MD Start: 09-22-2012 End: 09-22-2012 Ecg routine ecg w/least 12 lds w/i&r Neil Mendez MD Start: 09-22-2012 End: 09-29-2012 Echocardiography Neil Mendez MD Start: 09-22-2012 End: 09-22-2012 Follow Up Appt 6 weeks Neil Mendez MD Start: 09-22-2012 End: 10-04-2012 Magnesium [Mass/volume] in Serum or Plasma Neil Mendez MD Start: 09-22-2012 End: 09-30-2012 Nuclear stress test -exercise Neil Mendez MD Start: 09-07-2012 End: 09-22-2012 *Hepatic Function Panel Neil Mendez MD Start: 09-07-2012 End: 09-22-2012 Lipid 1996 panel - Serum or Plasma Neil Mendez MD Start: 03-14-2012 End: 03-14-2012 Follow Up Appt 6 months Neil Mendez MD Plan of Treatment Date Care Activity Detail Author Start: 03-21-2018 End: 03-21-2018 Appointment Appointment [facility] Work Phone: Start: 10-13-2017 End: 08-05-2017 *Hepatic Function Panel *Hepatic Function Panel [facility] Work Phone: Start: 10-13-2017 End: 08-05-2017 Lipid panel [AGGREGATE] *Lipid Profile CC PCP [facility] Work Phone: Start: 10-13-2017 End: 08-05-2017 Stress Echocardiogram (treadmill) Stress Echocardiogram (treadmill) [facility] Phone: Start: 2017 End: 03-05-2017 *Hepatic Function Panel *Hepatic Function Panel [facility] Work Phone: Start: 2017 End: 03-05-2017 Lipid panel [AGGREGATE] *Lipid Profile CC PCP [facility] Work Phone: Start: 08-05-2017 End: 08-05-2017 Appointment Appointment [facility] Work Phone: Start: 08-05-2017 End: 08-05-2017 NAYLA WINSLOW [facility] Work Phone: Start: 08-05-2017 End: 08-05-2017 Follow Up Appt 6 months Follow Up Appt 6 months [facility] Work Phone: Start: 01-25-2017 End: 01-25-2017 NAYLA WINSLOW [facility] Work Phone: Start: 01-25-2017 End: 01-25-2017 Follow Up Appt 6 months Follow Up Appt 6 months [facility] Work Phone: Start: 01-11-2017 End: 02-27-2017 *Hepatic Function Panel *Hepatic Function Panel [facility] Work Phone: Start: 01-11-2017 End: 02-27-2017 Lipid panel [AGGREGATE] *Lipid Profile CC PCP [facility] Work Phone: Start: 08-03-2016 End: 08-03-2016 NAYLA GONZALESN [facility] Work Phone: Start: 08-03-2016 End: 08-03-2016 Follow Up Appt 6 months Follow Up Appt 6 months [facility] Work Phone: Start: 01-27-2016 End: 07-16-2016 *Hepatic Function Panel *Hepatic Function Panel [facility] Work Phone: Start: 01-27-2016 End: 07-16-2016 Lipid panel [AGGREGATE] *Lipid Profile CC PCP [facility] Work Phone: Start: 08-05-2015 End: 08-05-2015 DJN JANETN [facility] Work Phone: Start: 08-05-2015 End: 08-05-2015 Echocardiography Echocardiogram (complete) [facility] Work Phone: Start: 08-05-2015 End: 08-05-2015 Follow Up Appt 1 year Follow Up Appt 1 year [facility] Phone: Start: 08-05-2015 End: 08-05-2015 Stress Echocardiogram (treadmill) Stress Echocardiogram (treadmill) [facility] Work Phone: Start: 07-23-2015 End: 07-29-2015 *Hepatic Function Panel *Hepatic Function Panel [facility] Work Phone: Start: 07-23-2015 End: 07-29-2015 Lipid panel [AGGREGATE] *Lipid Profile CC PCP [facility] Work Phone: Start: 07-31-2014 End: 07-31-2014 NAYLA WINSLOW [facility] Work Phone: Start: 07-31-2014 End: 07-31-2014 Follow Up Appt 1 year Follow Up Appt 1 year [facility] Work Phone: Start: 07-31-2014 End: 07-31-2014 Gastroenterology Referral Gastroenterology Referral Jaspreet Ceballos MD, [address] [place] [address], [place], [address] [facility] Work Phone: Start: 07-12-2014 End: 07-31-2014 *Hepatic Function Panel *Hepatic Function Panel [facility] Work Phone: Start: 07-12-2014 End: 07-13-2014 Lipid panel [AGGREGATE] *Lipid Profile CC PCP [facility] Work Phone: Start: 05-07-2014 End: 12-14-2013 *Hepatic Function Panel *Hepatic Function Panel [facility] Work Phone: Start: 05-07-2014 End: 07-31-2014 Lipid panel [AGGREGATE] *Lipid Profile CC PCP [facility] Work Phone: Start: 12-11-2013 End: 11-25-2013 *Hepatic Function Panel *Hepatic Function Panel [facility] Work Phone: Start: 07-11-2013 End: 07-11-2013 NAYLA WINSLOW [facility] Work Phone: Start: 07-11-2013 End: 07-11-2013 Follow Up Appt 1 year Follow Up Appt 1 year [facility] Work Phone: Start: 07-11-2013 End: 07-11-2013 Stress Echocardiogram (treadmill) Stress Echocardiogram (treadmill) [facility] Work Phone: Start: 07-07-2013 End: 11-21-2013 *Hepatic Function Panel *Hepatic Function Panel [facility] Work Phone: Start: 07-07-2013 End: 11-21-2013 Lipid panel [AGGREGATE] *Lipid Profile [facility] Work Phone: Start: 12-21-2012 End: 01-06-2013 *Hepatic Function Panel *Hepatic Function Panel [facility] Work Phone: Start: 12-21-2012 End: 01-06-2013 Lipid panel [AGGREGATE] *Lipid Profile [facility] Work Phone: Start: 11-03-2012 End: 11-03-2012 Follow Up Appt 6 months Follow Up Appt 6 months [facility] Work Phone: Start: 09-22-2012 End: 10-04-2012 *BMP *BMP [facility] Work Phone: Start: 09-22-2012 End: 10-04-2012 *CBC with Differential *CBC with Differential [facility] Work Phone: Start: 09-22-2012 End: 10-04-2012 Chest x-ray X-Ray, Chest, PA & Lateral [facility] Work Phone: Start: 09-22-2012 End: 09-22-2012 Ecg routine ecg w/least 12 lds w/i&r EKG (In office) [facility] Work Phone: Start: 09-22-2012 End: 09-22-2012 Echocardiography Echocardiogram (complete) [facility] Work Phone: Start: 09-22-2012 End: 09-22-2012 Follow Up Appt 6 weeks Follow Up Appt 6 weeks [facility] Work Phone: Start: 09-22-2012 End: 10-04-2012 Magnesium *Magnesium [facility] Work Phone: Start: 09-22-2012 End: 09-22-2012 Nuclear stress test -exercise Nuclear stress test -exercise [facility] Work Phone: Start: 09-07-2012 End: 09-22-2012 *Hepatic Function Panel *Hepatic Function Panel [facility] Work Phone: Start: 09-07-2012 End: 09-22-2012 Lipid panel [AGGREGATE] *Lipid Profile [facility] Work Phone: Start: 03-14-2012 End: 03-14-2012 Follow Up Appt 6 months Follow Up Appt 6 months [facility] Work Phone: Patient Education [facility] Work Phone: Summary Purpose Family History No Family History Records Found Advance Directives No Advanced Directives Records Found Additional Source Comments (unrecognized sect ion and content) No Status Records Found INFORMATION SOURCE (unrecogn ized section and content) FOR RECORDS PERTAINING TO PATIENTS WHO ARE OR HAVE BEEN ENROLLED IN A CHEMICAL DEPENDENCY/SUBSTANCEABUSE PROGRAM, SOME INFORMATION MAY BE OMITTED. This clinical summary was aggregated from multiple sources. Caution should be exercised in using it in the provision of clinical care. This summary normalizes information from multiple sources, and as a consequence, information in this document may materially change the coding, format and clinical context of patient data. In addition, data may be omitted in some cases. CLINICAL DECISIONS SHOULD BE BASED ON THE PRIMARY CLINICAL RECORDS. [employer] [facility]. provides no warranty or guarantee of the accuracy or completeness of information in this document.
[2023-10-21 08:26] LABS: AST(SGOT) 19 U/L (15-37); Alanine Aminotransfer ALT/SGPT 32 U/L (16-61); Albumin, Serum 3.8 g/dL (3.2-5.0); Alkaline Phosphatase 108 U/L (45-117); Bilirubin, Direct 0.29 mg/dL (0.00-0.30); Cholesterol 178 mg/dL (200); Globulin 3.4 g/dL (2.2-4.2); High Density Lipoprotein 47 mg/dL; Protein, Total 7.2 g/dL (6.4-8.2); Triglycerides 190 mg/dL; Very Low Density Lipoprotein 38 mg/dL (5-40)
== END | disposition home or self-care (01) ==
LOC: LAB 07:13
PROVIDERS: PCP Internal Medicine; Referring Provider Nurse Practitioner Family; Visit Provider Nurse Practitioner Family
DX: E78.00 Pure hypercholesterolemia, unspecified (principal)
CPT/HCPCS: 36415; 80061; 80076

== ENCOUNTER → 2023-11-23 | Outpatient (CLI) | payer MEDICARE, OTHER, SELFPAY ==
--- NOTE | 2023-11-23 07:56 | ECHOD_ITS ---
Reason For Study: Aortic stenosis Procedure This was a 2D Doppler, Color Flow transthoracic echocardiogram. Exam performed in department. Left Ventricle Normal LV size. Left ventricular systolic function is normal. The left ventricular ejection fraction is 65 %. No regional wall motion abnormalities noted. Right Ventricle Normal RV size. Normal systolic function. Atria The left atrium is moderately enlarged. Normal right atrium. Mitral Valve There is moderate mitral annular calcification. Mild (1+) eccentric mitral valve insufficiency. Tricuspid Valve Normal tricuspid valve. Aortic Valve Trisinus/trileaflet aortic valve. Moderate focal aortic valve calcification. Peak aortic valve gradient 44 mmHg. Mean aortic valve gradient 23 mmHg. Moderate aortic stenosis. Pulmonic Valve Normal pulmonic valve. Great Vessels Normal aortic root. The pulmonary artery is normal size. Inferior vena cava collapse with sniff. Pericardium/Pleural No pericardial effusion. MMode/2D Measurements & Calculations LVIDd: 4.4 cm IVSd: 1.2 cm LVOT diam: 2.0 cm LVIDs: 2.4 cm LVPWd: 1.1 cm LVOT area: 3.2 cm2 RVDd: 4.1 cm FS: 46.6 % Ao root diam: 3.1 cm LAV(MOD-bp): 102.8 ml LVAd ap4: 32.8 cm2 LAV(MOD-bp) Indexed: 50.0 ml/m2 LVLd ap4: 8.8 cm LAV(MOD-sp2): 96.4 ml EDV(MOD-sp4): 99.7 ml LAV(MOD-sp4): 95.4 ml EDV(sp4-el): 103.5 ml LVAs ap4: 17.3 cm2 LVLs ap4: 7.6 cm ESV(MOD-sp4): 34.8 ml ESV(sp4-el): 33.6 ml EF(MOD-sp4): 65.1 % EF(sp4-el): 67.5 % LVAd ap2: 35.8 cm2 SV(MOD-sp4): 64.9 ml SV(MOD-sp2): 84.7 ml LVLd ap2: 9.2 cm EDV(MOD-sp2): 118.2 ml EDV(sp2-el): 117.8 ml LVAs ap2: 17.6 cm2 LVLs ap2: 8.2 cm ESV(MOD-sp2): 33.5 ml ESV(sp2-el): 31.8 ml EF(MOD-sp2): 71.6 % SV(sp4-el): 69.9 ml LA dimension(2D): 4.5 cm LA A4 area: 28.1 cm2 RA A4 area: 16.1 cm2 TAPSE: 2.3 cm Time Measurements MV dec time: 0.26 sec Doppler Measurements & Calculations MV E max dani: 125.0 cm/sec Lat Peak E' Dani: 7.2 cm/sec Med Peak E' Dani: 8.0 cm/sec MV A max dani: 103.6 cm/sec E/E' lat: 17.5 E/E' med: 15.6 MV E/A: 1.2 MV V2 max: 125.6 cm/sec MV P1/2t max dani: 124.3 cm/sec Ao V2 max: 333.1 cm/sec MV max P.3 mmHg MV P1/2t: 81.4 msec Ao max P.4 mmHg MV V2 mean: 67.9 cm/sec Ao V2 mean: 226.2 cm/sec MV mean P.2 mmHg MV dec slope: 447.4 cm/sec2 Ao mean P.0 mmHg MV V2 VTI: 42.8 cm MVA(P1/2t): 2.7 cm2 Ao V2 VTI: 75.2 cm AV (velocity ratio): 0.39 MVA(VTI): 2.2 cm2 JESUS(I,D): 1.3 cm2 JESUS(V,D): 1.1 cm2 LV V1 max: 118.7 cm/sec SV(LVOT): 94.9 ml PA V2 max: 111.2 cm/sec LV V1 max P.6 mmHg LV V1 mean P.0 mmHg LV V1 mean: 82.9 cm/sec LV V1 VTI: 29.4 cm ECHO/Echo Complete Interpretation Summary Normal LV size. Left ventricular systolic function is normal. Moderate focal aortic valve calcification. Mean aortic valve gradient 23 mmHg. Moderate aortic stenosis. The left atrium is moderately enlarged. The left ventricular ejection fraction is 65 %. Compared to the previous the aortic gradients are moderately increased. Ordering Physician: Gee Moscoso Referring Physician: Tiki Vallecillo M.D. Performed By: Mayra Mac RDCS
== END | disposition home or self-care (01) ==
PROVIDERS: PCP Internal Medicine; Referring Provider Nurse Practitioner Family; Visit Provider Nurse Practitioner Family
DX: R06.02 Shortness of breath (principal); I35.0 Nonrheumatic aortic (valve) stenosis; R07.9 Chest pain, unspecified; I10 Essential (primary) hypertension; E78.5 Hyperlipidemia, unspecified; Z95.5 Presence of coronary angioplasty implant and graft
CPT/HCPCS: 93306

== ENCOUNTER → 2024-04-08 | Outpatient (CLI) | payer MEDICARE, OTHER, SELFPAY ==
[2024-04-08 08:17] LABS: AST(SGOT) 15 U/L (15-37); Alanine Aminotransfer ALT/SGPT 27 U/L (16-61); Albumin, Serum 3.7 g/dL (3.2-5.0); Alkaline Phosphatase 79 U/L (45-117); Cholesterol 146 mg/dL (200); Globulin 3.3 g/dL (2.2-4.2); High Density Lipoprotein 49 mg/dL; Triglycerides 116 mg/dL; Very Low Density Lipoprotein 23 mg/dL (5-40)
== END | disposition home or self-care (01) ==
PROVIDERS: PCP Internal Medicine; Referring Provider Internal Medicine Cardiovascular Disease; Visit Provider Internal Medicine Cardiovascular Disease
DX: E78.5 Hyperlipidemia, unspecified (principal); I25.10 Atherosclerotic heart disease of native coronary artery without angina pectoris
CPT/HCPCS: 36415; 80061; 80076

== ENCOUNTER → 2024-07-20 | Outpatient (CLI) | payer MEDICARE, OTHER, SELFPAY | END | disposition home or self-care (01) | LOC: SL 08:16 | PROVIDERS: PCP Internal Medicine; Referring Provider Nurse Practitioner Acute Care; Visit Provider Nurse Practitioner Acute Care | DX: G47.33 Obstructive sleep apnea (adult) (pediatric) (principal) | CPT/HCPCS: 98960; G0463 ==

== ENCOUNTER → 2024-07-25 | Outpatient (CLI) | payer MEDICARE, OTHER, SELFPAY ==
[2024-07-25 12:30] VITALS: PULSE 64; PULSE 78; PULSE 79; PULSE 81; PULSE 85; PULSE 86; PULSE 90; PULSE 92; O2SAT 94; O2SAT 95; O2SAT 96; O2SAT 97
--- NOTE | 2024-08-01 10:23 | WT_ITS ---
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 Assistive device used: None Pre-test Oxygen Delivery Method Room Air Pulse Ox (%) 95 Pulse Rate (60-100 beats/min) 64 Dyspnea Ileana Scale (0-10) 0 Exertion Ileana Scale (6-20) 6 1st minute Oxygen Delivery Method Room Air Pulse Ox (%) 94 Pulse Rate (60-100 beats/min) 78 2nd minute Oxygen Delivery Method Room Air Pulse Ox (%) 95 Pulse Rate (60-100 beats/min) 85 3rd minute Oxygen Delivery Method Room Air Pulse Ox (%) 96 Pulse Rate (60-100 beats/min) 90 4th minute Oxygen Delivery Method Room Air Pulse Ox (%) 95 Pulse Rate (60-100 beats/min) 92 5th minute Oxygen Delivery Method Room Air Pulse Ox (%) 95 Pulse Rate (60-100 beats/min) 86 6th minute Oxygen Delivery Method Room Air Pulse Ox (%) 97 Pulse Rate (60-100 beats/min) 81 Post-test Oxygen Delivery Method Room Air Pulse Ox (%) 95 Pulse Rate (60-100 beats/min) 79 Dyspnea Ileana Scale (0-10) 2 Exertion Ileana Scale (6-20) 11 Full Laps Walked 24 Partial Lap, Number of Tiles Walked 0 Total Distance Walked (ft) 1416 Interpretation Interpretation: The patient ambulated 1416 feet over the course of 6 minutes beginning on room air without assistive devices. Pretesting oxygen saturation was noted to be 95% on room air. With ambulation, the wesley oxygen saturation was 94%. There was no significant exertional oxygen desaturation. Recommendations Recommendations: There is no indication for the use of supplemental oxygen at this time.
== END | disposition home or self-care (01) ==
LOC: PSN 12:16
PROVIDERS: PCP Internal Medicine; Referring Provider Nurse Practitioner Acute Care; Visit Provider Nurse Practitioner Acute Care
DX: R06.02 Shortness of breath (principal)
CPT/HCPCS: 94618

== ENCOUNTER → 2024-07-26 | Outpatient (CLI) | payer MEDICARE, OTHER, SELFPAY | END | disposition home or self-care (01) | LOC: PSN 06:56 | PROVIDERS: PCP Internal Medicine; Referring Provider Nurse Practitioner Acute Care; Visit Provider Nurse Practitioner Acute Care | DX: R06.02 Shortness of breath (principal) | CPT/HCPCS: 94060; 94726; 94729 ==

== ENCOUNTER → 2024-09-29 | Outpatient (CLI) | payer MEDICARE, OTHER, SELFPAY ==
[2024-09-29 09:21] LABS: AST(SGOT) 15 U/L (15-37); Alanine Aminotransfer ALT/SGPT 40 U/L (16-61); Albumin, Serum 3.8 g/dL (3.2-5.0); Alkaline Phosphatase 77 U/L (45-117); Bilirubin, Direct 0.29 mg/dL (0.00-0.30); Cholesterol 186 mg/dL (200); Globulin 3.4 g/dL (2.2-4.2); High Density Lipoprotein 47 mg/dL; Protein, Total 7.2 g/dL (6.4-8.2); Triglycerides 235 mg/dL; Very Low Density Lipoprotein 47 mg/dL (5-40)
== END | disposition home or self-care (01) ==
LOC: LAB 08:21
PROVIDERS: PCP Internal Medicine; Referring Provider Internal Medicine Cardiovascular Disease; Visit Provider Internal Medicine Cardiovascular Disease
DX: E78.5 Hyperlipidemia, unspecified (principal); I25.10 Atherosclerotic heart disease of native coronary artery without angina pectoris
CPT/HCPCS: 36415; 80061; 80076

== ENCOUNTER → 2024-10-12 | Outpatient (CLI) | payer MEDICARE, OTHER, SELFPAY ==
[2024-10-12 10:50] LABS: Absolute Lymphocyte Count 1.71 X10^3/uL (0.83-4.51); Absolute Neutrophil Count 5.5 X10^3/uL (2.0-7.7); Basophil# 0.02 X10^3/uL; Basophil% 0.2 % (0-1); Eosinophil# 0.08 X10^3/uL; Hemoglobin 13.6 g/dL (13.0-16.5); Lymphocyte # 1.71 X10^3/ul (0.83-4.51); Lymphocyte % 21.3 % (19-41); Mean Corp Hgb Conc 32.4 g/dL (32-36); Mean Corpuscular Hgb 32.9 pg (27.0-32.0); Mean Corpuscular Volume 101.7 fL (80-94); Mean Platelet Vol. 12.2 fl (6.2-12.0); Monocyte# 0.65 X10^3/uL; Monocyte% 8.1 % (0-10); NRBC Flagged by Analyzer 0 % (0-5); Neutrophil # 5.52 X10^3/uL (2.7-7.7); Neutrophil % 68.8 % (47-70); Platelet Count 188 K/mm3 (150-450); RBC Distribution Width SD 44.7 fl (35.1-43.9); Red Blood Count 4.13 M/mm3 (4.6-6.2)
[2024-10-12 11:23] LABS: BNP,B-Type NATRIURETIC PEPTIDE 80.5 pg/mL (0-100)
[2024-10-12 11:52] LABS: ALB/GLOB Ratio 1.1 RATIO (0.9-2.4); AST(SGOT) 19 U/L (15-37); Alanine Aminotransfer ALT/SGPT 39 U/L (16-61); Albumin, Serum 3.8 g/dL (3.2-5.0); Alkaline Phosphatase 84 U/L (45-117); Anion Gap 8 (5-15); BUN 22 mg/dL (7-18); BUN/Creat Ratio 16.9 RATIO (10-20); Calcium,Total 9.4 mg/dL (8.5-10.1); Chloride 106 mmol/L (98-107); EST Glomerular Filtration Rate 58 mL/min (>60); Est Glom Filt Rate - Afr Amer 70 mL/min (>60); Globulin 3.4 g/dL (2.2-4.2); Glucose 99 mg/dL (74-106); Protein, Total 7.2 g/dL (6.4-8.2); Sodium Level 139 mmol/L (136-145)
== END | disposition home or self-care (01) ==
PROVIDERS: PCP Internal Medicine; Referring Provider Nurse Practitioner Family; Visit Provider Nurse Practitioner Family
DX: I10 Essential (primary) hypertension (principal); R06.02 Shortness of breath; Z95.5 Presence of coronary angioplasty implant and graft
CPT/HCPCS: 36415; 80053; 83880; 85025

== ENCOUNTER → 2024-11-21 | Outpatient (CLI) | payer MEDICARE, OTHER, SELFPAY ==
--- NOTE | 2024-11-21 06:22 | ECHOD_ITS ---
Reason For Study Reason For Study: Dyspnea/SOB Procedure This was a 2D Doppler, Color Flow transthoracic echocardiogram. Exam performed in department. Left Ventricle Normal LV size. Left ventricular systolic function is normal. The left ventricular ejection fraction is 60 %. No regional wall motion abnormalities noted. Right Ventricle Normal RV size. Normal systolic function. Atria The left atrium is mildly enlarged. Normal right atrium. Mitral Valve There is moderate to severe mitral annular calcification. Mild (1+) eccentric mitral valve insufficiency. Tricuspid Valve Normal tricuspid valve. Mild tricuspid valve insufficiency. Pulmonary artery systolic pressure is 36 mmHg. Aortic Valve Trisinus/trileaflet aortic valve. Moderate focal aortic valve calcification. Peak aortic valve gradient 28 mmHg. Mean aortic valve gradient 17 mmHg. Pulmonic Valve The pulmonic valve is not well visualized. Great Vessels Normal aortic root. The pulmonary artery is normal size. Inferior vena cava collapse with sniff. Pericardium/Pleural No pericardial effusion. MMode/2D Measurements & Calculations LVIDd: 4.8 cm IVSd: 1.0 cm LVOT diam: 2.0 cm LVIDs: 2.6 cm LVPWd: 1.0 cm LVOT area: 3.0 cm2 RVDd: 4.3 cm FS: 46.2 % Ao root diam: 2.7 cm LAV(MOD-bp): 69.6 ml LVAd ap4: 26.3 cm2 LAV(MOD-bp) Indexed: 34.0 ml/m2 LVLd ap4: 7.7 cm LAV(MOD-sp2): 61.6 ml EDV(MOD-sp4): 76.3 ml LAV(MOD-sp4): 72.5 ml EDV(sp4-el): 76.2 ml LVAs ap4: 14.3 cm2 LVLs ap4: 6.3 cm ESV(MOD-sp4): 28.1 ml ESV(sp4-el): 27.7 ml EF(MOD-sp4): 63.2 % EF(sp4-el): 63.6 % SV(MOD-sp4): 48.2 ml SV(sp4-el): 48.5 ml LA A4 area: 23.4 cm2 SI(MOD-sp4): 23.6 ml/m2 LA dimension(2D): 4.3 cm RA A4 area: 14.8 cm2 TAPSE: 2.3 cm Time Measurements MV dec time: 0.23 sec Doppler Measurements & Calculations MV E max dani: 116.9 cm/sec Lat Peak E' Dani: 6.7 cm/sec Med Peak E' Dani: 7.7 cm/sec MV A max dani: 89.8 cm/sec E/E' lat: 17.4 E/E' med: 15.2 MV E/A: 1.3 MV V2 max: 131.0 cm/sec Ao V2 max: 265.7 cm/sec MV max P.9 mmHg MV dec slope: 516.8 cm/sec2 Ao max P.3 mmHg MV V2 mean: 61.4 cm/sec Ao V2 mean: 203.4 cm/sec MV mean P.9 mmHg Ao mean P.6 mmHg MV V2 VTI: 43.1 cm Ao V2 VTI: 67.6 cm AV (velocity ratio): 0.38 MVA(VTI): 1.8 cm2 JESUS(I,D): 1.2 cm2 JESUS(V,D): 1.1 cm2 LV V1 max: 98.0 cm/sec SV(LVOT): 78.1 ml PA V2 max: 82.2 cm/sec LV V1 max P.8 mmHg LV V1 mean P.1 mmHg LV V1 mean: 68.8 cm/sec LV V1 VTI: 25.8 cm TR max dani: 287.5 cm/sec TR max P.1 mmHg ECHO/Echo Complete Interpretation Summary Normal LV size. Left ventricular systolic function is normal. The left ventricular ejection fraction is 60 %. The left atrium is mildly enlarged. Moderate focal aortic valve calcification. Mean aortic valve gradient 17 mmHg. Ordering Physician: Gee Moscoso Referring Physician: Tiki Vallecillo Performed By: Nichelle Moscoso RDCS, RVT
--- NOTE | 2024-11-21 11:51 | STRESSREP ---
Stress Test Report Pharmacologic myocardial perfusion stress test. 74-year-old man with a history of chest discomfort Resting EKG demonstrates sinus bradycardia with a rate of 48 bpm. Resting blood pressure is 142/82 mmHg. 0.4 mg of regadenoson was infused per usual protocol followed by rapid intravenous saline flush injection. Continuous EKG monitoring was performed. The maximum heart rate was 82 bpm which was 41%of max impacted heart rate the maximum workload was 1 metabolic equivalent. At rest there were no ST or T wave changes noted to suggest ischemia and at peak infusion nonspecific ST changes were noted which did not meet the criteria for ischemia. No clinical angina is noted. The final blood pressure was 134/78mmHg. Myocardial perfusion protocol. 14.1 mCi of technetium 99m sestamibi was injected at rest. 0.4 mg of regadenoson was infused per usual protocol. At peak infusion 43.0 mCi of technetium 99m sestamibi was injected stress images were obtained stress and rest images were reconstructed and compared in the short axis vertical long and horizontal long axis. Gated images were also obtained. Perfusion SPECT analysis: Review of the stress images demonstrate normal uptake of tracer noted in all areas of the myocardium. Mild reduction of perfusion in the anterior wall. The resting images similar demonstrated normal uptake of tracer noted in all areas of the myocardium. No areas of reversibility are noted to suggest ischemia and no previous infarct is noted. Gated SPECT analysis: The gated ejection fraction is 61%. Conclusion: Mildly Abnormal pharmacologic myocardial perfusion stress test. Mild anterior ischemia [Preserved] ejection fraction.
== END | disposition home or self-care (01) ==
LOC: CVS 06:22
PROVIDERS: PCP Internal Medicine; Referring Provider Nurse Practitioner Family; Visit Provider Nurse Practitioner Family
DX: I35.0 Nonrheumatic aortic (valve) stenosis (principal); Z95.5 Presence of coronary angioplasty implant and graft; R06.02 Shortness of breath; I10 Essential (primary) hypertension; E78.5 Hyperlipidemia, unspecified
CPT/HCPCS: 78452; 93017; 93306; A9500; A4216; J2785

== ENCOUNTER 2024-12-13 06:59 | Day surgery (SDC) | payer MEDICARE, OTHER, SELFPAY ==
--- NOTE | 2024-12-07 10:19 | RAD_ITS ---
PROCEDURE: CHEST PA AND LATERAL 12/07/2024 REASON FOR EXAM: PRE-OPERATIVE: [facility] TECHNIQUE: Frontal and lateral views of the chest. COMPARISON: 02/06/2021 FINDINGS: The lungs appear clear. Pulmonary vascularity appears within limits. The cardiac and mediastinal contours appear within limits. Coronary calcification and/or stent. Aortic atherosclerotic calcification. Lower cervical spondylosis and left acromioclavicular joint osteoarthrosis. RAD/Chest PA and Lateral IMPRESSION: No evidence of acute disease. Reading Location: [id number]
[2024-12-07 10:31] LABS: Absolute Lymphocyte Count 2.34 X10^3/uL (0.83-4.51); Basophil# 0.03 X10^3/uL; Basophil% 0.4 % (0-1); Eosinophil# 0.08 X10^3/uL; Eosinophils% 1.1 % (0-5); Hematocrit 39.5 % (40-54); Hemoglobin 13.4 g/dL (13.0-16.5); Lymphocyte # 2.34 X10^3/ul (0.83-4.51); Lymphocyte % 32.8 % (19-41); Mean Corp Hgb Conc 33.9 g/dL (32-36); Mean Corpuscular Volume 100.3 fL (80-94); Mean Platelet Vol. 11.5 fl (6.2-12.0); Monocyte# 0.66 X10^3/uL; Monocyte% 9.3 % (0-10); NRBC Flagged by Analyzer 0 % (0-5); Neutrophil # 3.97 X10^3/uL (2.7-7.7); Neutrophil % 55.7 % (47-70); Platelet Count 183 K/mm3 (150-450); RBC Distribution Width SD 44.1 fl (35.1-43.9); Red Blood Count 3.94 M/mm3 (4.6-6.2); White Blood Count 7.1 K/mm3 (4.4-11.0)
[2024-12-07 12:02] LABS: Anion Gap 13 (5-15); BUN 20 mg/dL (4-19); BUN/Creat Ratio 15.3 RATIO (10-20); Calcium,Total 9.4 mg/dL (7.6-11.0); Carbon Dioxide 22.6 mmol/L (21.0-32.0); Chloride 103 mmol/L (98-108); Creatinine, Serum 1.29 mg/dL (0.70-1.20); EST Glomerular Filtration Rate 59 (>60); Glucose 104 mg/dL (70-99); Potassium 4.3 mmol/L (3.3-5.1); Sodium Level 138 mmol/L (133-145)
--- NOTE | 2024-12-10 07:58 | HP.PCM_ITS ---
History and Physical Date of Admission: 12/13/24 He is a gentleman with a history of coronary artery disease status post previous angioplasty and stenting of the proximal left anterior descending artery with a bare-metal stent in the as well as a drug-eluting stent in the distal right coronary artery and angioplasty of the circumflex artery and ramus intermedius in December 2010. He had presented in January 2021 and undergone an evaluation with an echocardiogram which demonstrated preserved ejection fraction as well as a cardiac catheterization in February 2021 which demonstrated nonobstructive coronary disease left anterior descending artery with in-stent stenosis of 20% circumflex artery with 80% stenosis diffusely diseased, ramus intermedius with the previously placed stent which is patent and right coronary artery which was less than 30% stenosis. Medical therapy was recommended. He was seen in office on 10/12/2024 expressed concerns regarding chest heaviness with activity. He proceeded with a pharmacological perfusion stress test that was mildly abnormal for anterior ischemia and showed a preserved ejection fraction. He will proceed with heart catheterization. He continues with weekly chest heaviness with activity. This is located midsternal and last for minutes. This relieves with rest. He notices most during hotter weather. He acknowledges bilateral lower extremity edema and occasional shortness breath activity. This is gradual. He denies palpitations, claudication, shortness of breath at rest, orthopnea, cough, or PND. He denies lightheadedness, dizziness, near-syncope, or syncope. He states a fall in May 2023 and a another episode in which she fell off a ladder. This was associated with vertigo. He is unsure if there was loss of consciousness. 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 Is patient in pain?: No Allergies No Known Allergies Allergy (Verified 10/12/24 08:40) Medications: See EMR Ejection fraction %: 65 Have you fallen in the past year?: Yes (X 3 on ice) [facility] Medical History Essential hypertension Atherosclerosis of coronary artery of [place] heart without angina pectoris Non-rheumatic aortic stenosis Hyperlipidemia GERD (gastroesophageal reflux disease) Surgical History History of left heart catheterization (02/14/21) History of coronary artery stent placement Family History Father CAD (coronary artery disease)Son CUBA (obstructive sleep apnea) Social History adopted: No household members: spouse housing: house number of children: 3 current occupational status: employed 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 occupational exposures/hazards: No pets and animals: Yes pets and animals: cat(s) leisure activities: other history of recent travel: No sexually active: Yes Smoking Status: Never smoker alcohol intake: current details: very sporadic substance use type: does not use well-balanced diet: daily or most days caffeine: Yes eating out: 1-3 times/week during the past year weight has: other details: increase x5 what type of physical activity do you participate in: other abilio/gnosticism: Apostolic seatbelt use: always do you feel safe at home: Yes ROS Const Const: Negative for fatigue or weakness Eyes Eyes: Negative for change in vision ENT ENT: Negative for dizziness or balance problems Cardio Chest Pain: Yes Frequency: other (Ranges from once a week to several times per day) Character: other (Heaviness) Onset: other (With moderate exertion) Location: mid sternal Duration: minutes Exacerbation: other (exertion) Relieving: rest Palpitations: No Edema: Bilateral (Pitting edemal to BLE, progressing) Muscle aches with walking: None Resp Respiratory: Positive for SOB with activity; Negative for SOB at rest or SOB orthopnea\SOB lying down GI GI: Negative nausea or heartburn : Negative for hematuria or frequent nighttime urination/ nocturia Musc Musc: Positive for muscle weakness (BLE due to lipitor); Negative for balance problems Skin Skin: Negative non-healing lesions or rash Neuro Neuro: Negative for dizziness, lightheadedness, near syncope, syncope or weakness Endo Endo: Negative for fatigue Allergy Allergy/Immunology: Negative for rash Cardiology Exam Const Appearance: cooperative, healthy appearing, comfortable and no acute distress Nutritional Appearance: well nourished and obese Orientation: alert, awake and oriented x3 Head Head: normal to inspection Ears: hearing grossly normal bilaterally Nose: external nose normal Face and Sinus: face symmetric Mouth: moist mucous membranes Eyes General: appearance normal, both eyes and all related structures Eyelids: eyelids normal EOM: EOM intact bilaterally Neck Neck: normal visual inspection and no JVD Carotids: normal carotid upstroke Chest Chest inspection: normal inspection of the chest, symmetric chest movement and normal respiratory effort; Negative cough Auscultation: Bilateral: Clear to Auscultation Cardio Rate: regular rate Rhythm: regular rhythm Heart sounds: S1 normal, S2 normal and murmur; Negative rub or gallop Murmur: Grade 2/6, Grade 3/6 and HETAL loudest primary aortic area GI GI: normal to inspection and obese Neuro General: patient alert, patient awake, patient oriented x3 and CN's II-XI intact bilaterally Skin Skin: no rashes or lesions noted Extremities Pulses: Normal: Right Posterior Tibial Pulse, Left Posterior Tibial Pulse, Right Radial Pulse and Left Radial Pulse Lower Extremity Edema: None: Bilateral Psych Psychological: normal affect Supplemental Info Supplemental Information Echocardiogram from 11/21/2024: Interpretation Summary Normal LV size. Left ventricular systolic function is normal. The left ventricular ejection fraction is 60 %. The left atrium is mildly enlarged. Moderate focal aortic valve calcification. Mean aortic valve gradient 17 mmHg. Echocardiogram from 11/23/2023: Interpretation Summary Normal LV size. Left ventricular systolic function is normal. Moderate focal aortic valve calcification. Mean aortic valve gradient 23 mmHg. Moderate aortic stenosis. The left atrium is moderately enlarged. The left ventricular ejection fraction is 65 %. Compared to the previous the aortic gradients are moderately increased. Pharmacological stress test from 11/21/2024: Conclusion: Mildly Abnormal pharmacologic myocardial perfusion stress test. Mild anterior ischemia Preserved ejection fraction. Heart catheterization from 02/14/2021: CONCLUSIONS Single vessel CAD with significant LCX disease with patent stents in the LAD,ramus and RCA. CORONARY ANGIOGRAPHY DOMINANCE: Right Dominant LEFT HEART ASSESSMENT Left Ventricular Ejection Fraction: by LV Gram 70 % Normal LV wall motion Normal Left Ventricular systolic function LEFT MAIN: Non-obstructive LEFT ANTERIOR DESCENDING ARTERY: MID LAD: In stent restenosis 20 % CIRCUMFLEX ARTERY: PROX CIRC: Diffusely diseased up to 80 % RAMUS: Previously placed stent is patent RIGHT CORONARY ARTERY: Mild luminal irregularities less than 30% DISTAL RCA: Previously placed stent is patent VALVE FINDINGS: Aortic Valve Calcification - mild Assessment and Plan Assessment and Plan (1) History of coronary artery stent placement: Status: Chronic Comment: CRT-RQGF-Jvd-Distal RPDA,BMS-High Lateral Cx 05/23/1990; POBA-LAD 05/11/1991; Directional atherectomy Prox LAD w/ angioplasty 12/14/1990; EJO-CHM-Oxmt-Mid LAD 09/2004; USO-DRL-Ceyq-Ramus w/ 2.75 x 28 mm Promus and Mid Ramus w/ 2.75 x 8 mm Promus 01/02/2011 Plan: Heart catheterization in February 2021 showed single-vessel coronary artery disease with significant LCx disease with patent stents in the LAD, ramus, and RCA. Medical therapy was recommended. We have increased his Ranexa to assist with chest pain, but it remains. His stress test was mildly abnormal. He will proceed with heart catheterization. Depending on results, further recommendation to be made. (2) Non-rheumatic aortic stenosis: Status: Chronic Plan: His most recent echocardiogram from November 2023 demonstrating an ejection fraction of 65% with a mean aortic valve gradient of 23 mmHg suggesting moderate aortic stenosis. We will repeat echocardiogram to evaluate valvular stability. Depending results, further recommendation be made. (3) Essential hypertension: Status: Chronic Plan: Will continue to monitor and adjust medication as needed for blood pressure control. (4) Hyperlipidemia: Status: Chronic Qualifiers: Hyperlipidemia type: unspecified Qualified Code(s): E78.5 - Hyperlipidemia, unspecified Plan: Lipid panel on 09/29/2024 showed total cholesterol: 186, HDL: 47, LDL: 92, and triglycerides: 235. He will continue risk factor and lifestyle modification. He will continue Repatha. He was reminded of LDL goal of 70 and below for secondary prevention. (5) Shortness of breath: Status: Acute Plan: He underwent repeat echocardiogram on 11/21/2024 that showed LV function 60%, peak aortic valve gradient 28 mmHg, mean aortic valve gradient 17 mmHg, aortic valve velocity ratio of 0.38, and aortic valve area 1.2/1.1 cm?. He will proceed with heart catheterization on account of abnormal stress test.
[2024-12-12 10:50] VITALS: BMI 31.6
--- NOTE | 2024-12-13 08:37 | CL.D_ITS ---
Patient Name: YADIEL CHAVARIRA Study Date: 12/13/2024 Performing: Eduardo Link MD Ht: 68 inches 172.72 cm : 1950 Wt: 208.3 lbs 94.35 kg Age: 74 Gender: male BSA: 2.08 PROCEDURE(S) PERFORMED DC01-([id number])LHC/COR/LV CLINICAL PROFILE AND INDICATIONS Indications: Suspected CAD Heart Failure: None Stress/Imaging Date: 11/21/24Stress Test with SPECT MPI: Positive Low Risk CAD Presentations: Stable angina. CONCLUSIONS Coronary disease with patent stent noted in the LAD, ramus, severely diseased circumflex artery and moderate disease noted in the right coronary artery. Preserved ejection fraction. RECOMMENDATIONS Aggressive medical therapy. DESCRIPTION OF PROCEDURE The patient arrived to the procedure lab. The risks and benefits of the procedure as well as a full description of our services here and current unavailability of surgical backup were fully explained to the patient and/or their significant other prior to the catheterization. The Timeout was completed, verifying the correct patient and procedure. The patient's procedural site was prepped and draped in the usual fashion. Local anesthetic was given subcutaneously to right radial region with Lidocaine 2%. Using a modified Seldinger technique, arterial access was obtained via the right radial artery, a 6Fr sheath was inserted. Right Coronary Artery selective angiography was then performed in multiple views using a 5 Fr. 4.0 Ayr catheter. Left Coronary Artery selective angiography was performed in multiple views using a 5 Fr. 4.0 Ayr catheter. Left Ventriculography was performed in LOMBARDO projection using a 5 Fr. Pigtail catheter. LV to AO pullback pressures were then recorded.The arterial sheath was pulled and a TR Band was applied for hemostasis 10 ml of air CORONARY ANGIOGRAPHY DOMINANCE: Right Dominant LEFT HEART ASSESSMENT Left Ventricular Ejection Fraction: by LV Gram 60 % Normal LV wall motion Normal Left Ventricular systolic function LEFT MAIN: Mild calcification, Mild luminal irregularities LEFT ANTERIOR DESCENDING ARTERY: Previously placed stents in the left anterior descending artery with mild in-stent stenosis and mild diffuse distal disease CIRCUMFLEX ARTERY: Nondominant vessel diffusely proximally diseased subtotally occluded with 85 to 95% stenosis. RAMUS: Previously placed stent is noted to be patent with no high-grade stenosis RIGHT CORONARY ARTERY: Focal proximal 50% calcified stenotic area. Diffuse distal disease and mid segment disease. VALVE FINDINGS: Aortic Valve Stenosis - mild COMPLICATIONS No Complications PROCEDURE MEDICATIONS Fentanyl 50 mcg IV Versed 1 mg IV Oxygen: 2 L/min via nasal cannula Heparin given IA 12/13/2024 08:05:38 Verapamil 2.5mg, Ntg 100mcgs, 3000 units of Heparin given IA 12/13/2024 08:05:38 SUMMARY OF HEMODYNAMIC DATA Time AIR REST ECG 07:22:34 AO 99/64 (80) SA 08:07:16 AO 103/66 (83) 08:12:06 LV 146/14, 29 08:16:40 LV 136/15, 26 08:16:48 LV 143/28, 49 08:17:17 LV 137/16, 27 08:17:26 LVp 139/16, 24 08:17:33 AOp 136/15 (54) 08:17:40 AIR REST 08:30:58 Signed By Eduardo Link MD On 12/18/2024 08:06:28 Signed By Eduardo Link MD On 12/13/2024 08:36:37 Eduardo Link MD
== END 2024-12-13 09:50 | disposition home or self-care (01) ==
PROVIDERS: Nurse Practitioner Family; PCP Internal Medicine; Referring Provider Internal Medicine Cardiovascular Disease; Visit Provider Internal Medicine Cardiovascular Disease
DX: I25.118 Atherosclerotic heart disease of native coronary artery with other forms of angina pectoris (principal); I35.0 Nonrheumatic aortic (valve) stenosis; I10 Essential (primary) hypertension; Z95.5 Presence of coronary angioplasty implant and graft; T82.855A Stenosis of coronary artery stent, initial encounter; E78.5 Hyperlipidemia, unspecified; K21.9 Gastro-esophageal reflux disease without esophagitis; Y71.8 Miscellaneous cardiovascular devices associated with adverse incidents, not elsewhere classified
CPT/HCPCS: 36415; 71046; 80048; 85025; 93458; 99152; 99153; Q9967; C1769; C1894

== ENCOUNTER 2025-02-12 07:30 | Outpatient (RCR) | payer MEDICARE, OTHER, SELFPAY ==
--- NOTE | 2025-01-31 15:05 | HP.PTEVAL_ITS ---
Patient's Visit Information Visit Information Visit Information: YADIEL CHAVARRIA is a 74 year old M referred to Physical Therapy by JONATHAN Davis with a diagnosis of vertigo. Date of Evaluation: 01/31/25 Physical Therapist: Chester Cantor, JASMEETT, OCS, CSCS Visit Plan Frequency: 1x/Week Duration: 4-6 Weeks Plan: weekly as needed x 2-4 for positional checks and treatments, vestibular exercises as needed. IE: L mark anthony and post mark anthony instruct. next session check walking with head movements and positional, Oculomotor as needed Subjective Subjective: Vertigo. Started Wednesday night lying in bed and felt like being flipped around. spinning lasted 30 seconds. Then felt nauseated and tired. Then got along well adn got up from nap feeling crummy motion sick and no energy Wednesday night into Wednesday. Has been pretty good today but is a beard and went to urgent care but they could not treat him positionally and gave him meclizine. Sleeping sitting up b/c of this. rolling at night gives him slight seensation. 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 Objective Objective: Walks in I with good balance, holds heead still. Hesitant to move it. Transfers I chair and bed. cervical aROM WFL and without pain. UE AROM WFL and good strength. - R HD + L HD quick up torsional nystagmus and dizzyness and movement for 45 seconds. Treated with L eepley and then - test afterwards. Balance/Special Test Scores Functional Gait Assessment Score: 28 % Disability: 6.6700 Dizziness Score: 36 Goals Goal 1:: walk with head turns without feeling off. Goal Time Frame: 2-4 Weeks Goal 2:: dizzyness abolished x 4 days Goal Time Frame: 2-4 Weeks Goal 3:: Pt feel 100% back to normal activities Goal Time Frame: 2-4 Weeks Goal 4:: DHI score 8 or better Goal Time Frame: 2-4 Weeks Rehabilitation Potential Physical Therapy Diagnosis: Likely BPPV with positional dizzyness effecting comfortable funciton Rehabilitation Potential: Good Anticipated Interventions Patient/Client Instruction: Educate patient on: Condition and Plan of Care For the Purpose of:: To improve muscle performance and motor function and To increase tolerance to activity/condition/position Comment: vestibular treatments and ex For the Purpose of:: To increase tolerance to activity/condition/position Text: Thank you for the opportunity to evaluate your patient. For Medicare and Medicare HMO plans, please review the plan of care and approve it. It will need to be FAXED BACK to us at [phone] for Medicare purposes. For Medicare only, by signing this I certify the plan of care. Please let me know if there are questions or concerns regarding this plan of care. Physician Signature: Date:
--- NOTE | 2025-02-12 07:52 | HP.PTDCSUM_ITS ---
Discharge Summary D/C summary: It has been my pleasure to treat YADIEL CHAVARRIA referred by Gee Moscoso NP- C, with the diagnosis of vertigo for a total of 3 visit(s). Discharge Date: 02/12/25 Please see the following information for a summary of their discharge status. Subjective Subjective: Cured. maybe if lied on L side and got up quickly may get quick motion sickness but no spinning. Activities normal in the last week, avoided L side but inadvertently rolled theree a few times without any major issues. Overall Improvement % Improvement: 99 Objective Objective/Function: - B hallpike polly - roll test FGa looks good without LOB Goals Goal 1:: walk with head turns without feeling off. Goal Progress: Goal Met Goal 2:: dizzyness abolished x 4 days Goal Progress: Goal Met Goal 3:: Pt feel 100% back to normal activities Goal Progress: 99 Goal 4:: DHI score 8 or better Goal Progress: Goal Met Plan Plan: d/c, pt to try BD if dizzy returns and let doctor know but doing well right now with normal activity and - positional tests and normal balance. D/C Information d/c sentence: If there are questions or concerns regarding this patient's physical therapy, please feel free to call me at [phone]. Thank you for the referral of this patient. Sincerely, Chester Cantor, DPT, OCS, CSCS Balance/Gait/Functional tests Balance/Special Test Scores Functional Gait Assessment Score: 30 % Disability: 0 Dizziness Score: 6 Improvement % Improvement: 99
== END 2025-02-12 14:10 | disposition home or self-care (01) ==
LOC: PT 07:30
PROVIDERS: PCP Internal Medicine; Referring Provider Nurse Practitioner Family; Visit Provider Nurse Practitioner Family
DX: R42 Dizziness and giddiness (principal)
CPT/HCPCS: 97161; 97530

== ENCOUNTER → 2025-02-23 | Outpatient (CLI) | payer MEDICARE, OTHER, SELFPAY ==
[2025-02-23 09:38] LABS: AST(SGOT) 22 U/L (<=37); Alanine Aminotransfer ALT/SGPT 32 U/L (<=46); Albumin, Serum 4.3 g/dL (3.4-4.8); Alkaline Phosphatase 90 U/L (40-129); Bilirubin, Direct 0.32 mg/dL (0.00-0.30); Cholesterol 163 mg/dL (<=200); Globulin 2.6 g/dL (2.2-4.2); High Density Lipoprotein 40 mg/dL; Low Density Lipoprotein Calc. 62 mg/dL; Protein, Total 6.9 g/dL (5.9-8.4); Total Bilirubin 0.85 mg/dL (0.00-1.30); Triglycerides 304 mg/dL; Very Low Density Lipoprotein 61 mg/dL (5-40); cholesterol:hdl ratio screen 4.04
== END | disposition home or self-care (01) ==
PROVIDERS: PCP Internal Medicine; Referring Provider Nurse Practitioner Family; Visit Provider Nurse Practitioner Family
DX: E78.5 Hyperlipidemia, unspecified (principal); I25.10 Atherosclerotic heart disease of native coronary artery without angina pectoris
CPT/HCPCS: 36415; 80061; 80076

== ENCOUNTER → 2025-03-22 | Outpatient (CLI) | payer MEDICARE, OTHER, SELFPAY | END | disposition home or self-care (01) | LOC: PSN 07:50 | PROVIDERS: PCP Internal Medicine; Referring Provider Nurse Practitioner Family; Visit Provider Nurse Practitioner Family | DX: R00.1 Bradycardia, unspecified (principal) | CPT/HCPCS: 93225; 93226 ==

== ENCOUNTER → 2025-06-29 | Outpatient (CLI) | payer MEDICARE, OTHER, SELFPAY ==
[2025-06-29 09:38] LABS: AST(SGOT) 20 U/L (<=37); Alanine Aminotransfer ALT/SGPT 27 U/L (<=46); Albumin, Serum 4.3 g/dL (3.4-4.8); Alkaline Phosphatase 79 U/L (40-129); Bilirubin, Direct 0.38 mg/dL (0.00-0.30); Cholesterol 181 mg/dL (<=200); Globulin 2.6 g/dL (2.2-4.2); Low Density Lipoprotein Calc. 103 mg/dL; Triglycerides 178 mg/dL; Very Low Density Lipoprotein 36 mg/dL (5-40); cholesterol:hdl ratio screen 3.86
== END | disposition home or self-care (01) ==
LOC: LAB 08:44
PROVIDERS: PCP Internal Medicine; Referring Provider Nurse Practitioner Family; Visit Provider Nurse Practitioner Family
DX: E78.5 Hyperlipidemia, unspecified (principal); I25.10 Atherosclerotic heart disease of native coronary artery without angina pectoris
CPT/HCPCS: 36415; 80061; 80076

== ENCOUNTER → 2025-07-30 | Outpatient (CLI) | payer MEDICARE, OTHER, SELFPAY ==
[2025-07-30 09:15] LABS: Hematocrit 41.2 % (40-54); Hemoglobin 13.6 g/dL (13.0-16.5); Immature Granulocytes Count 0.040 X10^3/uL (0.0-0.0); Mean Corp Hgb Conc 33.0 g/dL (32-36); Mean Corpuscular Volume 104.8 fL (80-94); Mean Platelet Vol. 11.9 fl (6.2-12.0); NRBC Flagged by Analyzer 0 % (0-5); Platelet Count 199 K/mm3 (150-450); RBC Distribution Width CV 11.8 % (11.6-14.6); RBC Distribution Width SD 45.9 fl (35.1-43.9); Red Blood Count 3.93 M/mm3 (4.6-6.2); White Blood Count 7.7 K/mm3 (4.4-11.0)
[2025-07-30 10:04] LABS: AST(SGOT) 24 U/L (<=37); Alanine Aminotransfer ALT/SGPT 27 U/L (<=46); Albumin, Serum 4.4 g/dL (3.4-4.8); Alkaline Phosphatase 78 U/L (40-129); Anion Gap 7 (5-15); BUN 21 mg/dL (4-19); BUN/Creat Ratio 16.4 RATIO (10-20); Calcium,Total 9.2 mg/dL (7.6-11.0); Carbon Dioxide 28.5 mmol/L (21.0-32.0); Chloride 103 mmol/L (98-108); Globulin 2.4 g/dL (2.2-4.2); Glucose 120 mg/dL (70-99); Magnesium 2.4 mg/dL (1.5-2.2); PSA,Total - Annual Screen 0.69 ng/mL (0.02-4.00); Potassium 4.4 mmol/L (3.3-5.1); Vitamin B12 426 pg/mL (180-914); Vitamin D,25 Hydroxy 20.7 ng/mL (30-100)
== END | disposition home or self-care (01) ==
LOC: LAB 08:36
PROVIDERS: PCP Internal Medicine; Referring Provider Internal Medicine; Visit Provider Internal Medicine
DX: I10 Essential (primary) hypertension (principal); R73.9 Hyperglycemia, unspecified; E78.5 Hyperlipidemia, unspecified; I25.10 Atherosclerotic heart disease of native coronary artery without angina pectoris; R07.9 Chest pain, unspecified; E55.9 Vitamin D deficiency, unspecified; E53.8 Deficiency of other specified B group vitamins; Z12.5 Encounter for screening for malignant neoplasm of prostate
CPT/HCPCS: 36415; 80053; 82306; 82607; 83036; 83735; 84153; 84443; 85025; G0103